=== PATIENT | female | born 2005 | race African-American/Black ===

== ENCOUNTER → 2023-06-21 | Emergency (ER) | payer SELFPAY ==
--- OUTSIDE RECORDS SUMMARY | 2023-06-21 18:50 | XMS REPORT | Continuity of Care Document ---
Author Name Unknown Address [address] [place] [address] [employer] Address [address] [place] [address] Care Team Providers Care Burner Operator Name Role Phone Unavailable Unavailable Unavailable
--- NOTE | 2023-06-21 19:49 | RAD REPORT ---
EXAM DESCRIPTION: RAD - Shoulder Right 2 View - 06/21/2023 7:39 pm CLINICAL HISTORY: PAIN COMPARISON: No comparisons FINDINGS/IMPRESSION: No acute fracture. No malalignment. No significant focal degenerative changes.
--- NOTE | 2023-06-21 19:56 | ER ---
Nurse's Notes [facility] Name: Gustavo Alexandra Age: 18 yrs Sex: Female : 2005 Arrival Date: 06/21/2023 Time: 18:47 Bed 11 Private MD: Diagnosis: Sprain of shoulder joint Presentation: 06/21 19:06 Chief complaint: Patient states: RIGHT SHOULDER PAIN X3 WEEKS. NO TRAUMA OR INJURY. cm10 Coronavirus screen: Vaccine status: Patient reports being unvaccinated. Client denies travel out of the [place] in the last 14 days. Ebola Screen: Patient denies travel to an Ebola-affected area in the 21 days before illness onset. No symptoms or risks identified at this time. Initial Sepsis Screen: Does the patient meet any 2 criteria? No. Patient's initial sepsis screen is negative. Does the patient have a suspected source of infection? No. Patient's initial sepsis screen is negative. Risk Assessment: Do you want to hurt yourself or someone else? Patient reports no desire to harm self or others. Onset of symptoms was June 21, 2023. 19:06 Method Of Arrival: Ambulatory cm10 19:06 Acuity: CEDRIC 4 cm10 Triage Assessment: 19:58 General: Appears in no apparent distress. Behavior is calm, cooperative. Injury tl4 Description: Pt has repetitive pulling and heavy lifting recently. 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 - Social history:: Smoking status: Patient denies any tobacco usage or history of. Screenin:57 [facility] ED Fall Risk Assessment (Adult) History of falling in the last 3 months, tl4 including since admission No falls in past 3 months (0 pts) Confusion or Disorientation No (0 pts) Intoxicated or Sedated No (0 pts) Impaired Gait No (0 pts) Mobility Assist Device Used No (0 pt) Altered Elimination No (0 pt) Score/Fall Risk Level 0 - 2 = Low Risk Oriented to surroundings, Maintained a safe environment, Educated pt \T\ family on fall prevention, incl call for assistance when getting out of bed. Abuse screen: Denies threats or abuse. Denies injuries from another. Nutritional screening: No deficits noted. Tuberculosis screening: No symptoms or risk factors identified. Assessment: 19:56 Reassessment: No changes from previously documented assessment. Patient and/or family tl4 updated on plan of care and expected duration. Pain level reassessed. Patient is alert, oriented x 3, equal unlabored respirations, skin warm/dry/pink. Pain: Complains of pain in right shoulder. Musculoskeletal: Reports pain in right shoulder. Vital Signs: 19:06 BP 142 / 76; Pulse 81; Resp 14 S; Temp 97.6(O); Pulse Ox 100% on R/A; Weight 72.57 kg; cm10 Height 5 ft. 6 in. ; Pain 6/10; 19:06 Body Mass Index 25.82 (72.57 kg, 167.64 cm) cm10 19:06 Pain Scale: Adult cm10 ED Course: 18:52 Patient arrived in ED. ae5 18:56 Alfred Campbell MD is Attending Physician. ec2 19:11 Triage completed. cm10 19:11 Arm band placed on Patient placed in waiting room. cm10 19:41 Shoulder Right (2 View) XRAY In Process Unspecified. CHANDA 19:45 Wisam Wiggins is Primary Nurse. tl4 19:57 Patient has correct armband on for positive identification. Bed in low position. Call tl4 light in reach. Side rails up X 1. Adult w/ patient. Provided Education on: ED process. 19:58 No provider procedures requiring assistance completed. tl4 20:10 Patient did not have IV access during this emergency room visit. cm10 Administered Medications: No medications were administered Medication: 19:57 VIS not applicable for this client. tl4 Outcome: 19:56 Discharge ordered by . ec2 20:10 Discharged to home ambulatory, with friend, [email or web address] 20:10 Condition: good 20:10 Discharge instructions given to patient, Instructed on discharge instructions, follow up and referral plans. medication usage, Demonstrated understanding of instructions, follow-up care, medications, Prescriptions given X 1, 20:10 Patient left the ED. cm10 Signatures: Dispatcher [employer] Adela Haji, KEVIN BROWN cm10 Campbell, Alfred, MD MD ec2 Logdahl, Wisam tl4 Riggs, Alexia ae5
--- NOTE | 2023-06-21 19:56 | EDPHYS ---
Physician Documentation [facility] Name: Gutsavo Alexandra Age: 18 yrs Sex: Female : 2005 Arrival Date: 06/21/2023 Time: 18:47 Bed 11 Private MD: ED Physician Alfred Campbell HPI: 06/21 19:10 This 18 yrs old Black Female presents to ER via Unassigned with complaints of Shoulder ec2 Pain, Shoulder Injury. 19:10 Patient arrives today for evaluation of right shoulder pain. Patient reports that she ec2 has been experiencing several weeks of shoulder pain. States that she has no specific trauma or injury or fall. States that it is painful with range of motion. Denies any previous shoulder pathology. Denies any paresthesias or weakness in the right upper extremity.. 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 - Social history:: Smoking status: Patient denies any tobacco usage or history of. ROS: 19:10 Constitutional: as per hpi ec2 Exam: 19:10 Constitutional: GEN: NAD Head: atraumatic Eyes: EOMI Ears: External ears are ec2 normal. CV: regular rate LUNGS: no respiratory distress ABD: non-distended SKIN: no evidence of rashes MSK: no evidence of trauma proximal humerus/right shoulder, good range of motion with abduction, external range of motion, supination pronation NEURO: moves all extremities equally, right upper extremity with TTP to the Vital Signs: 19:06 BP 142 / 76; Pulse 81; Resp 14 S; Temp 97.6(O); Pulse Ox 100% on R/A; Weight 72.57 kg; cm10 Height 5 ft. 6 in. ; Pain 12/02; 19:06 Body Mass Index 25.82 (72.57 kg, 167.64 cm) cm10 19:06 Pain Scale: Adult cm10 MDM: 19:10 Data reviewed: vital signs. ED course: Patient arrives today for evaluation of right ec2 shoulder pain. Examination remarkable for well-appearing nontoxic individual is otherwise in no acute distress with a reassuring MSK examination. Will obtain radiograph of the right shoulder. Suspect possible muscular strain, low suspicion for bony pathology given reassuring examination.. 19:12 Patient medically screened. ec2 19:54 ED course: Shoulder x-ray independently reviewed and interpreted by me, shows no acute ec2 traumatic process, no evidence of dislocation. Will discharge home, prescribed Robaxin as needed for MSK pain. Return precautions given.. 06/21 19:10 Order name: Shoulder Right (2 View) XRAY; Complete Time: 19:53 ec2 Administered Medications: No medications were administered Disposition Summary: 06/21/23 19:56 Discharge Ordered Notes: Location: Home ec2 Condition: Stable ec2 Diagnosis - Sprain of shoulder joint ec2 Followup: ec2 - With: Private Physician - When: - Reason: Recheck today's complaints Discharge Instructions: - Discharge Summary Sheet ec2 - Shoulder Sprain ec2 Forms: - Medication Reconciliation Form ec2 - Thank You Letter ec2 - Antibiotic Education ec2 - Prescription Opioid Use ec2 - Patient Portal Instructions ec2 - Leadership Thank You Letter ec2 Prescriptions: - methocarbamol 500 mg Oral tablet - take 1 tablet ORAL route 4 times per day; 20 tablet; Refills: 0, Product ec2 Selection Permitted Signatures: Dispatcher [employer] Adela Haji RN RN cm10 Alfred Campbell MD MD ec2
[2023-06-21 22:51] VITALS: BP 142/76; TEMP 97.6; O2SAT 100
== END ==
LOC: ER 18:47
DX: S43.401A Unspecified sprain of right shoulder joint, initial encounter (principal)
CPT/HCPCS: 99283

== ENCOUNTER 2023-11-06 01:45 | Emergency (ER) | payer OTHER ==
--- OUTSIDE RECORDS SUMMARY | 2023-11-06 01:48 | XMS REPORT | Continuity of Care Document ---
Author Name Unknown Address [address] [facility] [address] [place] [address] [facility] Address [address] [facility] [address] [place] [address] Care Team Providers Care Helicopter Officer Name Role Phone PCP, PATIENT DOES NOT HAVE A Primary Care Physic chau Unavailable OSWALDO BOSWELL Attending Clinician Unavailable Oswaldo Boswell MD Attending Clinician OSWALDO BOSWELL Admitting Clinician Unavailable Payers Payer Name Policy Type Policy Number Effective Date Expirati on Date Source [employer] [id number] 2022 00:00:00 Allergies, Adverse Reactions, Alerts Allergy Name Allergy Type Status Severity Reaction(s) Onset Date Inactive Date Treating Clinician Comments Source NO KNOWN ALLERGIE S Drug Class Active [facility] Social History Social Habit Start Date Stop Date Quantity Comments Source Gender identity [facility] Sex Assigned At 2005 00:00:00 2005 00:00:00 [facility] Smoking Status Start Date Stop Date Source Tobacco smoking consumption unknown [facility] Vital Signs Vital Name Observation Time Observation Value Comments S yadiel Systolic blood pressure 2023-01-19 02:21:00 118 mm[Hg] [place] [facility] Diastolic blood pressure 2023-01-19 02:21:00 60 mm[Hg] [place] [facility] Heart rate 2023-01-19 02:21:00 63 /min [facility] acute hospital Respiratory rate 2023-01-19 02:21:00 14 /min [facility] Oxygen saturation in Arterial blood by Pulse oximetry 2023-01-19 02:21:00 100 /min [place] [facility] Body temperature 2023-01-19 00:12:00 37.22 Carey [facility] Body height 2023-01-19 00:12:[address] [facility] Body weight 2023-01-19 00:12:[address] [facility] BMI 2023-01-19 00:12:00 23.40 kg/m2 [facility] Procedures Procedure Date / Time Performed Performing Clinician Source POCT TEST 2023-01-19 01:06:00 Oswaldo Boswell [facility] MAGNESIUM 2023-01-19 00:58:[address] [facility] COMP. METABOLIC PANEL (21565) 2023-01-19 00:58:00 Oswaldo Boswell [facility] URINE DRUG (IMMUNOASSAY) - COMPREHENSIVE DRUG SCREEN 2023-01-19 00:58:00 Oswaldo Boswell [facility] CBC WITH DIFF 2023-01-19 00:58:[address] [facility] URINALYSIS 2023-01-19 00:58:[address] [facility] Encounters Start Date/Time End Date/Time Encounter Type Admission Type Attending Clinicians Care Facility Care Department Encounter ID Source 2023-01-18 19:14:00 2023-01-18 21:27:00 Emergency X OSWALDO BOSWELL [facility] ERT [id number] [facility] 2023-01-18 19:14:00 2023-01-18 21:27:00 Emergency Oswaldo Boswell [facility] [id number] [facility] Results Test Description Test Time Test Comments Results Result Co mments Source [facility] 01:38:33* Test Item Value Reference Range Interpretation Comme nts MAGNESIUM (test code = 5648005197) 1.9 mg/dL 1.7-2.4 Lab Interpretation (test cod e = 39650-2) Normal [facility] WITH [id number] 01:15:10* Test Item Value Reference Range Interpretation Comme nts WBC (test code = 6690-2) 7.63 See_Comment [Automated messa ge] The system which generated this result transmitted reference range: 4.30 - 11.10 10*3/?L. The reference range was not used to interpret this result as normal/abnormal. RBC (test code = 789-8) 4.54 See_Comment [Automated messa ge] The system which generated this result transmitted reference range: 3.93 - 5.25 10*6/?L. The reference range was not used to interpret this result as normal/abnormal. HGB (test code = 718-7) 14.0 g/dL 11.6-15.0 HCT (test code = 4544-3) 40.4 % 35.7-45.2 MCV (test code = 787-2) 89.0 fL 80.6-95.5 MCH (test code = 785-6) 30.8 pg 25.9-32.8 MCHC (test code = 786-4) 34.7 g/dL 31.6-35.1 RDW-SD (test code = 93560-9) 38.1 fL 39.0-49.9 L RDW-CV (test code = 788-0) 11.9 % 12.0-15.5 L PLT (test code = 777-3) 255 See_Comment [Automated messa ge] The system which generated this result transmitted reference range: 166 - 358 10*3/?L. The reference range was not used to interpret this result as normal/abnormal. MPV (test code = 73061-4) 10.5 fL 9.5-12.9 NRBC/100 WBC (test code = 4615727042) 0.0 See_Comment [Automated [employer] ssage] The system which generated this result transmitted reference range: 0.0 - 10.0 /100 WBCs. The reference range was not used to interpret this result as normal/abnormal. NRBC x10^3 (test code = 1881226427) See_Comment [Automated messa ge] The system which generated this result transmitted reference range: 10*3/?L. The reference range was not used to interpret this result as normal/abnormal. GRAN MAT (NEUT) % (test code = 770-8) 47.5 % IMM GRAN % (test code = 5123801394) 0.10 % LYMPH % (test code = 736-9) 43.8 % MONO % (test code = 5905-5) 5.5 % EOS % (test code = 713-8) 2.8 % BASO % (test code = 706-2) 0.3 % GRAN MAT x10^3(ANC) (test code = 7043985700) 3.63 10*3/uL 1.88-7.09 IMM GRAN x10^3 (test code = 4383917740) 0.00-0.06 LYMPH x10^3 (test code = 731-0) 3.34 10*3/uL 1.32-3.29 H MONO x10^3 (test code = 742-7) 0.42 10*3/uL 0.33-0.92 EOS x10^3 (test code = 711-2) 0.21 10*3/uL 0.03-0.39 BASO x10^3 (test code = 704-7) 0.01-0.07 Lab Interpretation (test code = 12820-1) [id number] 01:06:00* Test Item Value Reference Range Interpretation Comme nts POCT PREG (test code = 1605) Negative On board controls acceptable with C Line (test code = 3574) Yes POCT PREG LOT # (test code = 3575) [id number] POCT PREG TEST DATE ( test code = 3576) [id number] Lab Interpretation (test cod e = 40900-3) Normal [facility] Notes Date/Time Note Provider Source 2023-01-18 19:11:19 BuwYCnAhTM8NRMIv/KAL ovyyi1wjMULJsSJyGYg7gY to0FzFhm+8fMNGOxT0uUby2920-27-13Q89:11:19F ormatting of this note might be different from the original.Patient reports she thinks she is having a seizure right now during triage, and states she had one last night and this passed out. Patient was ambulatory to triage and is randomly shaking her body. [id number] department Triage pbhlOT0524-37-44U95:14:32[facility] Triage [id number] 9|[id number] for patient [address] Dd[id number] BPUHZQPTVAFQUFNS3924-67-49Y08:14:321.2.840 .372288.1.72.3.15|1.2.840.637572.1.13.104. 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 Pt is reported to have had generalized shaking that lasted about 3 seconds and another lasting about a minute. No CLAYTON. No tongue bite. No loss of bladder/bowel fx. Partner reports a period of confusion that lasted very briefly. No head trauma or injury. No fever or chills. No rash. Denies any UTI/URI symptoms. No neck pain/stiffness.First observed episode occurred in November of this year. Maternal grandmother has a hx of seizures, otherwise no other family hx of seizuresHistory provided by: Significant other and patientLanguage staff development manager used: No SeizuresSeizure activity on arrival: no Seizure type: Unable to specifyInitial focality: DiffuseEpisode characteristics: abnormal movements Return to baseline: yes Severity: MildDuration: 3 secondsTiming: IntermittentNumber of seizures this episode: 3Progression: ImprovingContext: family hx of seizures Context: not alcohol withdrawal, not cerebral palsy, not change in medication, not sleeping less, not developmental delay, not drug use, not emotional upset, not fever, not flashing visual stimuli, not hydrocephalus, not intracranial lesion, not intracranial shunt, medical compliance, not possible hypoglycemia, not possible medication ingestion, not , not previous head injury and not stress Recent head injury: No recent head injuriesPTA treatment: NoneHistory of seizures: no Past Medical History/Immunizations:AnxietyTetanus received in last 5 years: Unknown Allergies:No Known AllergiesPast Social History:Substance & Sexual Activity No substance use or sexual activity history on file. Past Surgical History:NoneReview of Systems: Review of Systems Constitutional: Negative. HENT: Negative. Eyes: Negative. Respiratory: Negative. Breasts: Negative. Cardiovascular: Negative. Gastrointestinal: Negative. Genitourinary: Negative. Musculoskeletal: Negative. Skin: Negative. Neurological: Positive for seizures. Psychiatric/Behavioral: Negative. All other systems reviewed and are negative.Endocrine: Endocrine negativePhysical Exam: ED Triage Vitals [01/18/231911] Weight 65.8 kg (145 lb) Actual or estimated Actual Height 1.676 m (5' 6") BP (!) 133/96 Pulse 109 Resp 18 Temp 37.2 ?C (99 ?F) Temp src SpO2 100 % Measured on Room air Physical ExamVitals and nursing note reviewed. Constitutional: General: She is not in acute distress. Appearance: Normal appearance. She is well-developed and normal weight. She is not ill-appearing or toxic-appearing. HENT: Head: Normocephalic and atraumatic. Nose: Nose normal. No congestion or rhinorrhea. Mouth/Throat: Mouth: Mucous membranes are moist. Pharynx: Oropharynx is clear. No oropharyngeal exudate or posterior oropharyngeal erythema. Eyes: General: No scleral icterus. Right eye: No discharge. Left eye: No discharge. Extraocular Movements: Extraocular movements intact. Conjunctiva/sclera: Conjunctivae normal. Pupils: Pupils are equal, round, and reactive to light. Neck: Thyroid: No thyromegaly. Cardiovascular: Rate and Rhythm: Normal rate and regular rhythm. Pulses: Normal pulses. Heart sounds: Normal heart sounds. No murmur heard.Pulmonary: Effort: Pulmonary effort is normal. No respiratory distress. Breath sounds: Normal breath sounds. No stridor. No wheezing, rhonchi or rales. Chest: Chest wall: No tenderness. Abdominal: General: Bowel sounds are normal. There is no distension. Palpations: Abdomen is soft. Tenderness: There is no abdominal tenderness. There is no right CVA tenderness, left CVA tenderness, guarding or rebound. Musculoskeletal: General: No swelling, tenderness, deformity or signs of injury. Normal range of motion. Cervical back: Normal range of motion and neck supple. No rigidity or tenderness. Right lower leg: No edema. Left lower leg: No edema. Lymphadenopathy: Cervical: No cervical adenopathy. Skin: General: Skin is warm and dry. Capillary Refill: Capillary refill takes less than 2 seconds. Coloration: Skin is not jaundiced or pale. Findings: No bruising, erythema, lesion or rash. Neurological: General: No focal deficit present. Mental Status: She is alert and oriented to person, place, and time. Cranial Nerves: No cranial nerve deficit. Sensory: No sensory deficit. Motor: No weakness or abnormal muscle tone. Coordination: Coordination normal. Gait: Gait normal. Deep Tendon Reflexes: Reflexes normal. Psychiatric: Behavior: Behavior normal. Thought Content: Thought content normal. Judgment: Judgment normal. Radiology:CT HEAD WO CONTRAST Preliminary Result EXAM: CT HEAD WO CONTRAST HISTORY: 17 years-old Female; Provided indication: Seizure, nontraumatic, Seizure-like activity . TECHNIQUE: Axial CT of the head was performed and reconstructed at 5 mm intervals. Coronal and sagittal reformatted images were generated. COMPARISON: None FINDINGS: The ventricles and cerebral sulci are normal in caliber and configuration. No midline shift or pathological extra-axial fluid collection is present. The basal cisterns are unremarkable. No acute intracranial hemorrhage or significant mass effect is visualized. No parenchymal attenuation abnormality is seen. The mann-white matter differentiation is preserved. The mastoid air cells and paranasal air sinuses are cl3ear. The calvarium and central skull base are unremarkable. IMPRESSION No acute intracranial hemorrhage or mass effect. Preliminary Report Dictated by Resident: Jennifer Mercedes Lab Results:Lab Results CBC WITH DIFF - Abnormal Result Value Ref Range WBC 7.63 4.30 - 11.10 10*3/?L RBC 4.54 3.93 - 5.25 10*6/?L HGB 14.0 11.6 - 15.0 g/dL HCT 40.4 35.7 - 45.2 % MCV 89.0 80.6 - 95.5 fL MCH 30.8 25.9 - 32.8 pg MCHC 34.7 31.6 - 35.1 g/dL RDW-SD 38.1 (*) 39.0 - 49.9 fL RDW-CV 11.9 (*) 12.0 - 15.5 % PLT 255 166 - 358 10*3/?L MPV 10.5 9.5 - 12.9 fL NRBC/100 WBC 0.0 0.0 - 10.0 /100 WBCs NRBC x10^3 <0.01 10*3/?L GRAN MAT (NEUT) % 47.5 % IMM GRAN % 0.10 % LYMPH % 43.8 % MONO % 5.5 % EOS % 2.8 % BASO % 0.3 % GRAN MAT x10^3(ANC) 3.63 1.88 - 7.09 10*3/uL IMM GRAN x10^3 <0.03 0.00 - 0.06 10*3/uL LYMPH x10^3 3.34 (*) 1.32 - 3.29 10*3/uL MONO x10^3 0.42 0.33 - 0.92 10*3/uL EOS x10^3 0.21 0.03 - 0.39 10*3/uL BASO x10^3 <0.03 0.01 - 0.07 10*3/uL URINALYSIS - Abnormal APPEARANCE Clear Clear COLOR Straw (*) Yellow PH 7.0 4.8 - 8.0 SP GRAVITY 1.010 1.003 - 1.030 GLU U QUAL Normal Normal BLOOD Negative Negative KETONES Negative Negative PROTEIN Negative Negative UROBILIN Normal Normal BILIRUBIN Negative Negative NITRITE Negative Negative LEUK GEMA Negative Negative RBC/HPF <1 0 - 3 HPF WBC/HPF 2 0 - 5 HPF BACTERIA Few (*) Negative SQ EPITH 1 HPF URINE DRUG (IMMUNOASSAY) - COMPREHENSIVE DRUG SCREEN - Normal AMPHET Negative Negative HARRISON U Negative Negative BENZO U Negative Negative Cocaine Metabolite Negative Negative METHADONE Negative Negative OPIATES Negative Negative PCP Negative Negative THC Negative Negative POCT TEST - Normal POCT PREG Negative On board controls acceptable with C Line Yes POCT PREG LOT # [id number] POCT PREG TEST DATE MAGNESIUM - Normal MAGNESIUM 1.9 1.7 - 2.4 mg/dL COMP. METABOLIC PANEL (01257) NA 137 135 - 145 mmol/L K 4.2 3.5 - 5.0 mmol/L CL 105 98 - 108 mmol/L CO2 TOTAL 24 23 - 31 mmol/L AGAP 8 2 - 16 BUN 7 7 - 23 mg/dL GLUCOSE 83 70 - 110 mg/dL CREATININE 0.79 0.50 - 1.04 mg/dL TOTAL BILI 0.5 0.1 - 1.1 mg/dL CALCIUM 9.3 8.6 - 10.6 mg/dL T PROTEIN 7.9 6.3 - 8.2 g/dL ALBUMIN 4.4 3.5 - 5.0 g/dL ALK PHOS 71 34 - 122 U/L ALTv 13 5 - 35 U/L AST(SGOT) 21 13 - 40 U/L eGFR 93.8 mL/min/1.73m2 Orders and Treatments:Orders Placed This Encounter Procedures CT HEAD WO CONTRAST CBC WITH DIFF COMP. METABOLIC PANEL (93070) URINALYSIS DRUG PANEL 2 URINE POCT TEST MAGNESIUM No orders of the defined types were placed in this encounter.First Provider Eval:ED Events Date/Time Event User Comments 01/18/231914 Medical Screening Begins OSWALDO BOSWELL MD -- 01/18/231914 First Provider Evaluation OSWALDO BOSWELL MD -- ED COURSEDiagnosis/Impression as of 01/18/232122 Seizure-like activity Procedures: ProceduresMDM:Medical Decision MakingAjose ramon Alexandra is a 17 year old femaleh wo presents to the ED with seizure-like activityProblems Addressed:Seizure-like activity: acute illness or injury Details: ED evaluation, laboratory and imaging study results as documenetd. No acute findingsAmount and/or Complexity of Data ReviewedIndependent Historian: friendLabs: ordered. Decision-making details documented in ED Course.Radiology: ordered. Decision-making details documented in ED Course.RiskDecision regarding hospitalization.Risk Details: No indication for hospitalization at this timeWill refer to PCP/Neurology for further work-upNo seizure or seizure-like activity appreciated in the ED during entire period of observation Flowsheet Documentation: Scoring Tools: No data recorded Disposition/Condition:ED Disposition ED Disposition Disch - Home Condition Stable Comment -- Discharge Medications:Patient's Medications No medications on file Follow-up:Contact information for follow-up Travis Jim MD Specialty: PN-NEUROLOGY [facility] AND [address] [address] Electronically signed by: Oswaldo Boswell MD01/18/232122 [id number] Emergency department HayvDT1861-07-62S64:23:18Physician Emergency department [id number] 9|[id number] for patient careUT11 Marsh [id number] AMAYAWYIVDFVPMGQLLYJS0193-68-77N24:23:181.2.840 .754905.1.72.3.15|1.2.840.441712.1.13.104. [id number] [facility]
[2023-11-06] MEDS ORDERED: KETOROLAC 30 MG/ML INJ ONE (02:21)
[2023-11-06] MEDS ORDERED: DIPHENHYDRAMINE 50 MG/ML VIAL ONE (02:21)
[2023-11-06] MEDS ORDERED: NA CHLORIDE 0.9% 1,000 ML ONE (02:22)
[2023-11-06] MEDS ORDERED: METOCLOPRAMIDE 10 MG/2mL INJ ONE (02:22)
[2023-11-06 02:46] LABS: Specific Gravity 1.015 (1.005-1.030)
[2023-11-06] MEDS ORDERED: MORPHINE 4 MG/ML SYR ONE (03:03)
--- NOTE | 2023-11-06 03:23 | EDPHYS ---
Physician Documentation [facility] Name: Gustavo Alexandra Age: 18 yrs Sex: Female : 2005 Arrival Date: 11/06/2023 Time: 01:45 Bed 11 Private MD: ED Physician Pepe Bowman HPI: 11/05 02:02 This 18 yrs old Black Female presents to ER via Ambulatory with complaints of Migraine. sp4 03:18 18-year-old female presents with recurrent migraine headache. Patient has history of sp4 migraine headaches. Last CT was done 6 months ago and was normal. Patient reports headache and nausea. Light sensitivity to her eyes. 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 Flu vaccine is not up to date. - Infectious Disease History:: Denies. - Social history:: Smoking status: Patient denies any tobacco usage or history of. Patient/guardian denies using alcohol, street drugs. - Family history:: not pertinent. ROS: 03:18 Constitutional: Negative for fever, chills, and weight loss, positive acute headache. sp4 03:18 All other systems are negative, Exam: 03:18 Constitutional: This is a well developed, well nourished patient who is awake, alert, sp4 and in no acute distress. Head/Face: Normocephalic, atraumatic. Eyes: Pupils equal round and reactive to light, extra-ocular motions intact. Lids and lashes normal. Conjunctiva and sclera are not injected. Cornea within normal limits. Periorbital areas with no swelling, redness, or edema. ENT: Nares patent. No nasal discharge, no septal abnormalities noted. Tympanic membranes are normal and external auditory canals are clear. Oropharynx with no redness, swelling, or masses, exudates, or evidence of obstruction, uvula midline. Mucous membranes moist. Neck: Trachea midline, no thyromegaly or masses palpated, and no cervical lymphadenopathy. Supple, full range of motion without nuchal rigidity, or vertebral point tenderness. Chest/axilla: Normal chest wall appearance and motion. Nontender with no deformity. No lesions are appreciated. Cardiovascular: Regular rate and rhythm with a normal S1 and S2. No gallops, murmurs, or rubs. Normal PMI, no JVD. No pulse deficits. Respiratory: Lungs have equal breath sounds bilaterally, clear to auscultation and percussion. No rales, rhonchi or wheezes noted. No increased work of breathing, no retractions or nasal flaring. Abdomen/GI: Soft, with normal bowel sounds. No distension or tympany. No guarding or rebound. No evidence of tenderness throughout. Back: No spinal tenderness. No costovertebral tenderness. Skin: Warm, dry with normal turgor. Normal color with no rashes, no lesions, and no evidence of cellulitis. MS/ Extremity: Pulses equal, no cyanosis. Neurovascular intact. Full, normal range of motion. Neuro: Awake and alert, GCS 15, oriented to person, place, time, and situation. Cranial nerves II-XII grossly intact. Motor strength 5/5 in all extremities. Sensory grossly intact. Psych: Awake, alert, with orientation to person, place and time. Behavior, mood, and affect are within normal limits Vital Signs: 01:56 BP 126 / 77; Pulse 73; Resp 17 S; Temp 98.2(O); Pulse Ox 100% on R/A; Weight 77.11 kg lg3 (R); Height 5 ft. 6 in. (R); 03:35 BP 121 / 74; Pulse 71; Resp 16 S; Temp 98(O); Pulse Ox 100% on R/A; lg3 01:56 Body Mass Index 27.44 (77.11 kg, 167.64 cm) lg3 Keren Coma Score: 03:18 Eye Response: spontaneous(4). Motor Response: obeys commands(6). Verbal Response: sp4 oriented(5). Total: 15. MDM: 02:03 Patient medically screened. sp4 03:18 Differential Diagnosis altered mental status, sepsis, flu, Migraine . Data reviewed: sp4 vital signs, nurses notes, lab test result(s), UPT: negative. ED course: Pain has improved after the medications. Patient is feeling much better. Stable for discharge home. . 11/05 02:03 Order name: Test, Urine; Complete Time: 03:16 sp4 11/05 01:58 Order name: IV Start; Complete Time: 02:30 sb4 Administered Medications: 02:40 Drug: Ketorolac IVP 30 mg IVP once Route: IVP; Site: left antecubital; lg3 03:35 Follow up: Response: No adverse reaction; Marked relief of symptoms lg3 02:40 Drug: metoCLOPramide IVP 10 mg IVP once; over 1 to 2 minutes Route: IVP; Site: left lg3 antecubital; 03:35 Follow up: Response: No adverse reaction; Marked relief of symptoms lg3 02:40 Drug: diphenhydrAMINE IVP 25 mg IVP once Route: IVP; Site: left antecubital; lg3 03:34 Follow up: Response: No adverse reaction; Marked relief of symptoms lg3 02:40 Drug: NS 0.9% IV 1000 ml IV at 1 bolus Per protocol; 1000 mL bolus Route: IV; Rate: 1 lg3 bolus; Site: left antecubital; 03:34 Follow up: Response: No adverse reaction; IV Status: Completed infusion; IV Intake: lg3 1000ml 03:05 Drug: morphine IVP or IV 4 mg IVP once over 4 mins Route: IVP; Infused Over: 4 mins; lg3 Site: left antecubital; 03:34 Follow up: Response: No adverse reaction; Marked relief of symptoms lg3 Disposition Summary: 11/06/23 03:23 Discharge Ordered Notes: Location: Home sp4 Problem: new sp4 Symptoms: have improved sp4 Condition: Stable sp4 Diagnosis - Migraine without aura, not intractable sp4 Followup: sp4 - With: Danny Kelley DO - When: 7 - 10 days - Reason: Recheck today's complaints Discharge Instructions: - Discharge Summary Sheet sp4 - Migraine Headache, Sajf-kb-Oicy sp4 Prescriptions: - Fioricet 50-300-40 mg Oral capsule - take 1 capsule ORAL route every 6 hours PRN headache; 30 capsule; Refills: 0, sp4 Product Selection Permitted - ondansetron 8 mg Oral Tablet,disintegrating - take 1 tablet ORAL route every 8 hours PRN nausea; 30 tablet; Refills: 0, sp4 Product Selection Permitted Signatures: Dispatcher [employer] Claritza Stovall RN RN lg3 Aimee Stephens PA-C PA-C sb4 Pepe Bowman MD MD sp4
--- NOTE | 2023-11-06 03:23 | ER ---
Nurse's Notes [facility] Name: Gustavo Alexandra Age: 18 yrs Sex: Female : 2005 Arrival Date: 11/06/2023 Time: 01:45 Bed 11 Private MD: Diagnosis: Migraine without aura, not intractable Presentation: 11/05 01:56 Chief complaint: Patient states: migraine X8 hours. 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 lg3 Coronavirus screen: Client denies travel out of the [place] in the last 14 days. At this time, the client does not indicate any symptoms associated with coronavirus-19. Ebola Screen: No symptoms or risks identified at this time. Initial Sepsis Screen: Does the patient meet any 2 criteria? No. Patient's initial sepsis screen is negative. Does the patient have a suspected source of infection? No. Patient's initial sepsis screen is negative. Risk Assessment: Do you want to hurt yourself or someone else? Patient reports no desire to harm self or others. Onset of symptoms was November 05, 2023. 01:56 Method Of Arrival: Ambulatory lg3 01:56 Acuity: CEDRIC 3 lg3 Triage Assessment: 01:57 General: Appears in no apparent distress. comfortable, Behavior is calm, cooperative. lg3 Pain: Complains of pain in head Pain does not radiate. Pain currently is 9 out of 10 on a pain scale. EENT: No deficits noted. No signs and/or symptoms were reported regarding the EENT system. Neuro: No deficits noted. Elliott Agitation-Sedation Scale (RASS): 0 - Alert and Calm Level of Consciousness is awake, alert, obeys commands, Oriented to person, place, time, situation, Reports headache weakness. Cardiovascular: No deficits noted. Denies chest pain, shortness of breath, Capillary refill < 3 seconds Clubbing of nail beds is absent JVD is absent Patient's skin is warm and dry. Respiratory: No deficits noted. Airway is patent Respiratory effort is even, unlabored, Respiratory pattern is regular, symmetrical. GI: No deficits noted. No signs and/or symptoms were reported involving the gastrointestinal system. : No deficits noted. No signs and/or symptoms were reported regarding the genitourinary system. Derm: No deficits noted. No signs and/or symptoms reported regarding the dermatologic system. Skin is intact, is healthy with good turgor, Skin is dry, Skin is normal, Skin temperature is warm. Musculoskeletal: No deficits noted. No signs and/or symptoms reported regarding the musculoskeletal system. Circulation, motion, and sensation intact. Range of motion: intact in all extremities. 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 Flu vaccine is not up to date. - Infectious Disease History:: Denies. - Social history:: Smoking status: Patient denies any tobacco usage or history of. Patient/guardian denies using alcohol, street drugs. - Family history:: not pertinent. Screenin:59 [facility] ED Fall Risk Assessment (Adult) History of falling in the last 3 months, lg3 including since admission No falls in past 3 months (0 pts) Confusion or Disorientation No (0 pts) Intoxicated or Sedated No (0 pts) Impaired Gait No (0 pts) Mobility Assist Device Used No (0 pt) Altered Elimination No (0 pt) Score/Fall Risk Level 0 - 2 = Low Risk Oriented to surroundings, Maintained a safe environment, Educated pt \T\ family on fall prevention, incl call for assistance when getting out of bed, Assessed \T\ reinforced patient's understanding of fall precautions. Abuse screen: Denies threats or abuse. Denies injuries from another. Nutritional screening: No deficits noted. Tuberculosis screening: No symptoms or risk factors identified. Assessment: 01:59 General: see triage assessment. lg3 03:34 Reassessment: Patient appears in no apparent distress at this time. Patient and/or lg3 family updated on plan of care and expected duration. Pain level reassessed. Patient is alert, oriented x 3, equal unlabored respirations, skin warm/dry/pink. Patient states feeling better. Patient states symptoms have improved. Vital Signs: 01:56 BP 126 / 77; Pulse 73; Resp 17 S; Temp 98.2(O); Pulse Ox 100% on R/A; Weight 77.11 kg lg3 (R); Height 5 ft. 6 in. (R); 03:35 BP 121 / 74; Pulse 71; Resp 16 S; Temp 98(O); Pulse Ox 100% on R/A; lg3 01:56 Body Mass Index 27.44 (77.11 kg, 167.64 cm) lg3 Keren Coma Score: 03:18 Eye Response: spontaneous(4). Motor Response: obeys commands(6). Verbal Response: sp4 oriented(5). Total: 15. ED Course: 01:48 Patient arrived in ED. ra3 01:57 Triage completed. lg3 01:57 Arm band placed on right wrist. lg3 01:59 Patient has correct armband on for positive identification. lg3 02:02 Pepe Bowman MD is Attending Physician. sp4 02:30 Claritza Hurt RN is Primary Nurse. lg3 02:30 Inserted saline lock: 20 gauge in left antecubital area, using aseptic technique. lg3 03:22 Danny Kelley DO is Referral Physician. sp4 03:34 No provider procedures requiring assistance completed. IV discontinued, intact, lg3 bleeding controlled, No redness/swelling at site. Pressure dressing applied. Administered Medications: 02:40 Drug: Ketorolac IVP 30 mg IVP once Route: IVP; Site: left antecubital; lg3 03:35 Follow up: Response: No adverse reaction; Marked relief of symptoms lg3 02:40 Drug: metoCLOPramide IVP 10 mg IVP once; over 1 to 2 minutes Route: IVP; Site: left lg3 antecubital; 03:35 Follow up: Response: No adverse reaction; Marked relief of symptoms lg3 02:40 Drug: diphenhydrAMINE IVP 25 mg IVP once Route: IVP; Site: left antecubital; lg3 03:34 Follow up: Response: No adverse reaction; Marked relief of symptoms lg3 02:40 Drug: NS 0.9% IV 1000 ml IV at 1 bolus Per protocol; 1000 mL bolus Route: IV; Rate: 1 lg3 bolus; Site: left antecubital; 03:34 Follow up: Response: No adverse reaction; IV Status: Completed infusion; IV Intake: lg3 1000ml 03:05 Drug: morphine IVP or IV 4 mg IVP once over 4 mins Route: IVP; Infused Over: 4 mins; lg3 Site: left antecubital; 03:34 Follow up: Response: No adverse reaction; Marked relief of symptoms lg3 Medication: 03:34 VIS not applicable for this client. lg3 Intake: 03:34 IV: 1000ml; Total: 1000ml. lg3 Outcome: 03:23 Discharge ordered by . [email or web address] 03:34 Discharged to home ambulatory, with significant other, lg3 03:34 Condition: stable 03:34 Discharge instructions given to patient, Instructed on discharge instructions, follow up and referral plans. medication usage, Demonstrated understanding of instructions, follow-up care, medications, 03:35 Patient left the ED. lg3 Signatures: Claritza Hurt RN RN lg3 Pepe Bowman MD MD sp4 Michelle Cross ra3
[2023-11-06 03:48] VITALS: BP 121/74; TEMP 98; O2SAT 100
== END 2023-11-06 03:35 | disposition home or self-care (01) ==
LOC: ER 01:45
DX: G43.009 Migraine without aura, not intractable, without status migrainosus (principal); Z28.310 Unvaccinated for COVID-19
CPT/HCPCS: 96361; 81025; 96375; 96374; 99284; J2765; J1200; J7030

== ENCOUNTER 2023-12-21 18:04 | Emergency (ER) | payer OTHER ==
--- OUTSIDE RECORDS SUMMARY | 2023-12-21 18:08 | XMS REPORT | Continuity of Care Document ---
Author Name Unknown Address [address] [place] [address] [facility] Address 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 Name Role Phone PCP, PATIENT DOES NOT HAVE A Primary Care Physic chau Unavailable OSWALDO BOSWELL Attending Clinician Unavailable Oswaldo Boswell MD Attending Clinician OSWALDO BOSWELL Admitting Clinician Unavailable Payers Payer Name Policy Type Policy Number Effective Date Expirati on Date Source [employer] [id number] 2022 00:00:00 Allergies, Adverse Reactions, Alerts Allergy Name Allergy Type Status Severity Reaction(s) Onset Date Inactive Date Treating Clinician Comments Source NO KNOWN ALLERGIE S Drug Class Active [facility] Social History Social Habit Start Date Stop Date Quantity Comments Source Gender identity [facility] Sexual orientation [facility] Sex Assigned At 2005 00:00:00 2005 00:00:00 [facility] Smoking Status Start Date Stop Date Source Tobacco smoking consumption unknown [facility] Vital Signs Vital Name Observation Time Observation Value Comments S yadiel Systolic blood pressure 2023-01-19 02:21:00 118 mm[Hg] [facility] Diastolic blood pressure 2023-01-19 02:21:00 60 mm[Hg] [facility] Heart rate 2023-01-19 02:21:00 63 /min [facility] Respiratory rate 2023-01-19 02:21:00 14 /min [facility] Oxygen saturation in Arterial blood by Pulse oximetry 2023-01-19 02:21:00 100 /min [facility] Body temperature 2023-01-19 00:12:00 37.22 Carey [facility] Body height 2023-01-19 00:12:00 167.6 cm [facility] Body weight 2023-01-19 00:12:00 65.772 kg [facility] BMI 2023-01-19 00:12:00 23.40 kg/m2 [facility] Procedures Procedure Date / Time Performed Performing Clinician Source POCT TEST 2023-01-19 01:06:00 Oswaldo Boswell [facility] MAGNESIUM 2023-01-19 00:58:00 Oswaldo Boswell [facility] COMP. METABOLIC PANEL (41148) 2023-01-19 00:58:00 Oswaldo Boswell [facility] URINE DRUG (IMMUNOASSAY) - COMPREHENSIVE DRUG SCREEN 2023-01-19 00:58:00 Oswaldo Boswell [facility] CBC WITH DIFF 2023-01-19 00:58:00 Oswaldo Boswell [facility] URINALYSIS 2023-01-19 00:58:00 Oswaldo Boswell [facility] Encounters Start Date/Time End Date/Time Encounter Type Admission Type Attending Clinicians Care Facility Care Department Encounter ID Source 2023-01-18 19:14:00 2023-01-18 21:27:00 Emergency X OSWALDO BOSWELL [facility] ERT [id number] [facility] 2023-01-18 19:14:00 2023-01-18 21:27:00 Emergency Oswaldo Boswell [facility] [id number] [facility] Results Test Description Test Time Test Comments Results Result Co mments Source [facility]23-[facility] 01:38:33* Test Item Value Reference Range Interpretation Comme nts MAGNESIUM (test code = 6036991533) 1.9 mg/dL 1.7-2.4 Lab Interpretation (test cod e = 31561-9) Normal [facility] WITH [id number] 01:15:10* Test Item Value Reference Range Interpretation [...] 34.7 g/dL 31.6-35.1 RDW-SD (test code = 81244-3) 38.1 fL 39.0-49.9 L RDW-CV (test code = 788-0) 11.9 % 12.0-15.5 L PLT (test code = 777-3) 255 See_Comment [Automated messa ge] The system which generated this result transmitted reference range: 166 - 358 10*3/?L. The reference range was not used to interpret this result as normal/abnormal. MPV (test code = 52381-8) 10.5 fL 9.5-12.9 NRBC/100 WBC (test code = 3925283135) 0.0 See_Comment [Automated EduSourced ssage] The system which generated this result transmitted reference range: 0.0 - 10.0 /100 WBCs. The reference range was not used to interpret this result as normal/abnormal. NRBC x10^3 (test code = 2967324062) See_Comment [Automated messa ge] The system which generated this result transmitted reference range: 10*3/?L. The reference range was not used to interpret this result as normal/abnormal. GRAN MAT (NEUT) % (test code = 770-8) 47.5 % IMM GRAN % (test code = 9566052757) 0.10 % LYMPH % (test code = 736-9) 43.8 % MONO % (test code = 5905-5) 5.5 % EOS % (test code = 713-8) 2.8 % BASO % (test code = 706-2) 0.3 % GRAN MAT x10^3(ANC) (test code = 1547656777) 3.63 10*3/uL 1.88-7.09 IMM GRAN x10^3 (test code = 2846569305) 0.00-0.06 LYMPH x10^3 (test code = 731-0) 3.34 10*3/uL 1.32-3.29 H MONO x10^3 (test code = 742-7) 0.42 10*3/uL 0.33-0.92 EOS x10^3 (test code = 711-2) 0.21 10*3/uL 0.03-0.39 BASO x10^3 (test code = 704-7) 0.01-0.07 Lab Interpretation (test code = 09018-7) Abnormal [facility] [id number] 01:06:00* Test Item Value Reference Range Interpretation Comme nts POCT PREG (test code = 1605) Negative On board controls acceptable with C Line (test code = 3574) Yes POCT PREG LOT # (test code = 3575) [id number] POCT PREG TEST DATE ( test code = 3576) [id number] Lab Interpretation (test cod e = 96961-4) Normal [facility] Notes Date/Time Note Provider Source 2023-01-18 19:11:19 [id number]:11:19F ormatting of this note might be different from the original.Patient reports she thinks she is having a seizure right now during triage, and states she had one last night and this passed out. Patient was ambulatory to triage and is randomly shaking her body. 01570-8Rjplyiukx department Triage [id number]:14:32[facility] Triage [id number] for patient [address] Gf[id number] [id number]:14:321.2.840 .315145.1.72.3.15|[id number]. 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 METABOLIC PANEL (56534) NA 137 135 - 145 mmol/L K [...] CONTRAST CBC WITH DIFF COMP. METABOLIC PANEL (44671) URINALYSIS DRUG PANEL 2 URINE POCT TEST MAGNESIUM No orders of the defined types were placed in this encounter.First Provider Eval:ED Events Date/Time Event User Comments 01/18/231914 Medical Screening Begins OSWALDO BSOWELL MD -- 01/18/231914 First Provider Evaluation OSWALDO [...] for follow-up Travis Jim MD Specialty: PN-NEUROLOGY [facility] AND [address] [address] Electronically signed by: Oswaldo Boswell MD01/18/232122 [id number] Emergency department [id number]:23:18Physician Emergency department [id number] for patient careUT56 Strickland [id number] HSKQXLIBNOZOOQWZ9227-94-31K93:23:181.2.840 .[id number]|[id number]. [id number] [facility]
[2023-12-21] MEDS ORDERED: LORazepam 2 MG/ML VIAL ONE (20:22)
[2023-12-21] MEDS ORDERED: NA CHLORIDE 0.9% 1,000 ML ONE (20:23)
[2023-12-21 20:32] LABS: Absolute Eosinophils 0.2 K/uL (0-0.5); Absolute Lymphocytes (CBC) 2.8 K/uL (0.7-4.9); Absolute Monocytes 0.4 K/uL (0.1-1.3); Absolute Neutrophil 3.7 K/uL (1.8-8.0); Basophils % 0.3 % (0-1.3); Eosinophils % 3.4 % (0-4.4); Hematocrit 38.5 % (36.0-45.0); Hemoglobin 12.9 g/dL (12.0-15.0); Lymphocytes % 38.7 % (15.3-44.8); MCH 30.5 pg (27.0-35.0); MCHC 33.5 g/dL (32.0-36.0); MCV 91.1 fL (80-100); MPV 8.1 fL (7.6-11.3); Monocytes % 5.2 % (3.3-12.3); Neutrophils % 52.4 % (41.7-73.7); Nucleated Red Blood Cells % 0.1 % (0-0); Platelets 286 thou/uL (152-406); RBC Red Blood Cell Count 4.23 M/uL (3.86-4.86); Red Cell Distribution Width 12.9 % (12.1-15.2)
--- NOTE | 2023-12-21 20:49 | RAD REPORT ---
EXAM DESCRIPTION: CT - Head Brain Wo Cont - 12/21/2023 8:36 pm CLINICAL HISTORY: Headache COMPARISON: none TECHNIQUE: Computed axial tomography of the head was obtained. IV contrast was not requested. All CT scans are performed using dose optimization technique as appropriate and may include automated exposure control or mA/KV adjustment according to patient size. FINDINGS: An intracranial bleed is not seen The ventricles are normal in caliber No significant hypodense areas within the brain visualized No extra-axial fluid collection is noted. Fluid within the sinuses/ mastoids is not seen IMPRESSION: No acute intracranial abnormality is seen If patient's symptoms persist MRI of the brain would be recommended
[2023-12-21 20:55] LABS: ALT/SGPT 18 U/L (13-56); AST/SGOT 11 U/L (15-37); Albumin 3.8 g/dL (3.4-5.0); Albumin/Globulin Ratio 1.1 (1.1-1.8); Alkaline Phosphatase 74 U/L (45-117); Anion Gap 6.8 mEq/L (5.0-15.0); BUN Blood Urea Nitrogen 7 mg/dL (7-18); Bicarbonate 26 mEq/L (21-32); Bilirubin Total 0.3 mg/dL (0.2-1.0); Globulin 3.4 g/dL (2.3-3.5); Glomerular Filtration Rate 129 ml/min (=/>90); Glucose Level 89 mg/dL (74-106); Magnesium 2.1 mg/dL (1.6-2.4); Potassium 3.8 mEq/L (3.5-5.1); Protein, Total 7.2 g/dL (6.4-8.2); Sodium Level 137 mEq/L (136-145)
[2023-12-21 20:56] LABS: Bilirubin Direct < 0.2 mg/dL (0-0.2); Bilirubin Indirect, Calculated 0.1 mg/dL (0.2-0.8); Troponin High Sensitivity < 3.0 pg/mL (<58.9)
--- NOTE | 2023-12-21 21:29 | RAD REPORT ---
EXAM DESCRIPTION: Jaswinder Single View12/21/2023 9:22 pm CLINICAL HISTORY: Chest pain COMPARISON: none FINDINGS: The lungs appear clear of acute infiltrate. The heart is normal size IMPRESSION: No acute abnormalities displayed
[2023-12-21 21:34] LABS: Specific Gravity 1.007 (1.005-1.030)
[2023-12-21 21:35] LABS: Barbiturates POSITIVE (NEGATIVE); Benzodiazepines NEGATIVE (NEGATIVE); Cocaine NEGATIVE (NEGATIVE); METHAMPHETAM NEGATIVE (NEGATIVE); Methadone NEGATIVE (NEGATIVE); Opiates NEGATIVE (NEGATIVE); Phencyclidine NEGATIVE (NEGATIVE); THC Cannibis NEGATIVE (NEGATIVE)
[2023-12-21 21:40] LABS: Specific Gravity 1.007 (1.005-1.030); Sqamous Epithelial <5 /HPF (None Seen); Urine Bacteria <20 /HPF (<20); Urine Bilirubin NEGATIVE (Negative); Urine Blood Negative (Negative); Urine Clarity Extremely Turbid (Clear); Urine Color Colorless (Yellow); Urine Culture Reflex Order NOT NEEDED; Urine Glucose NEGATIVE (Negative); Urine Ketones NEGATIVE (Negative); Urine Micro Reflex YN NO BILL MICROSCOPIC; Urine Mucus Slight /HPF (None Seen); Urine Nitrite NEGATIVE (Negative); Urine Protein NEGATIVE (Negative); Urine RBC <5 /HPF (None Seen); Urine Urobilinogen Normal (Normal); Urine WBC <5 /HPF (<5)
--- NOTE | 2023-12-21 22:46 | EDPHYS ---
Physician Documentation [facility] Name: Gustavo Alexandra Age: 18 yrs Sex: Female : 2005 Arrival Date: 12/21/2023 Time: 18:04 Bed 18 Private MD: ED Physician Jabier Jeronimo HPI: 12/20 19:30 This 18 yrs old Black Female presents to ER via Ambulatory with complaints of Tremor - cp x3days, Blurred Vision - Fatigue. 19:30 Patient presents to ED with c/o having an "aura", intermittent trembling and shaking, cp fatigue, blurry vision. Patient reports she has had a seizure in the past and feels like she is having seizure like activity but denies any LOC. Not currently taking any seizure medication and has not been seen by neurology to have an EEG. 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 - Infectious Disease History:: Denies. - Social history:: Smoking status: unknown. ROS: 19:35 Constitutional: Positive for fatigue, Negative for fever, cp 19:35 Eyes: Positive for blurry vision, Negative for vision loss, cp 19:35 ENT: Negative for drainage from ear(s), ear pain, sore throat, difficulty swallowing, difficulty handling secretions, 19:35 Cardiovascular: Negative for chest pain, 19:35 Respiratory: Negative for cough, shortness of breath, wheezing, 19:35 Abdomen/GI: Negative for abdominal pain, 19:35 Neuro: Positive for dizziness, headache, tingling, tremor, weakness, 19:35 All other systems are negative, Exam: 19:40 Constitutional: The patient appears in no acute distress, alert, awake, cp non-diaphoretic, non-toxic, well developed, well nourished, 19:40 Head/Face: Normocephalic, atraumatic. cp 19:40 Eyes: Periorbital structures: appear normal, Pupils: equal, round, and reactive to light and accomodation, Extraocular movements: intact throughout, Conjunctiva: normal, no exudate, no injection, Sclera: no appreciated abnormality, Lids and lashes: appear normal, bilaterally, 19:40 ENT: External ear(s): are unremarkable, Nose: is normal, Mouth: Lips: moist, Oral mucosa: pink and intact, moist, Posterior pharynx: Airway: no evidence of obstruction, patent, 19:40 Neck: ROM/movement: is normal, is supple, without pain, no range of motions limitations, 19:40 Chest/axilla: Inspection: normal, Palpation: is normal, no crepitus, no tenderness, 19:40 Cardiovascular: Rate: normal, Rhythm: regular, 19:40 Respiratory: the patient does not display signs of respiratory distress, Respirations: normal, no use of accessory muscles, no retractions, labored breathing, is not present, Breath sounds: are clear throughout, no decreased breath sounds, no stridor, no wheezing, 19:40 Abdomen/GI: Inspection: abdomen appears normal, Palpation: abdomen is soft and non-tender, in all quadrants, 19:40 Neuro: Orientation: to person, place \\T\\ time. Mentation: is normal, Cerebellar function: is grossly normal, Motor: moves all fours, strength is normal, Sensation: is normal, 20:12 ECG was reviewed by the Attending Physician. Vital Signs: 18:25 BP 118 / 65; Pulse 87; Resp 18 S; Temp 97.8(O); Pulse Ox 100% on R/A; Weight 84.82 kg aa5 (R); Height 5 ft. 5 in. (R); 20:47 BP 111 / 71; Pulse 60; Resp 14; Pulse Ox 100% on R/A; nj1 21:50 BP 108 / 63; Pulse 58; Resp 17 S; Pulse Ox 100% on R/A; ha1 22:20 BP 97 / 61; Pulse 78; Resp 17 S; Pulse Ox 100% on R/A; ha1 23:03 BP 98 / 65; Pulse 87; Resp 17 S; Pulse Ox 100% on R/A; ha1 18:25 Body Mass Index 31.12 (84.82 kg, 165.1 cm) aa5 MDM: 18:29 Patient medically screened. cp 22:45 Data reviewed: vital signs, nurses notes, lab test result(s), EKG, radiologic studies, cp plain films, and as a result, I will discharge patient. 22:45 I considered the following discharge prescriptions or medication management in the emergency department Medications were administered in the Emergency Department. See MAR. Counseling: I had a detailed discussion with the patient and/or guardian regarding the historical points, exam findings, and any diagnostic results supporting the discharge/admit diagnosis, lab results, radiology results, the need for outpatient follow up, a neurologist, to return to the emergency department if symptoms worsen or persist or if there are any questions or concerns that arise at home. Response to treatment: the patient's symptoms have mildly improved after treatment. ED course: VSS. No seizure activity observed while monitoring patient in ED. 12/20 19:25 Order name: Basic Metabolic Panel; Complete Time: 22:35 12/20 22:35 Interpretation: Normal except: CL 108. 12/20 19:25 Order name: CBC with Diff; Complete Time: 22:35 12/20 19:25 Order name: LFT's; Complete Time: 22:35 12/20 22:35 Interpretation: Normal except: AST 11; IBILI, CALC 0.1. 12/20 19:25 Order name: Magnesium; Complete Time: 22:35 12/20 19:25 Order name: Troponin HS; Complete Time: 22:35 12/20 19:25 Order name: Urine W/Microscopic (UAM); Complete Time: 22:35 12/20 19:25 Order name: Test, Urine; Complete Time: 22:35 12/20 20:12 Order name: UDS; Complete Time: 22:35 12/20 19:25 Order name: XRAY Chest (1 view); Complete Time: 22:35 12/20 22:37 Interpretation: Report review. 12/20 20:12 Order name: CT Head Brain wo Cont; Complete Time: 22:35 12/20 19:25 Order name: EKG; Complete Time: 19:25 12/20 19:25 Order name: Cardiac monitoring; Complete Time: 20:16 12/20 19:25 Order name: EKG - Nurse/Tech; Complete Time: 20:07 12/20 19:25 Order name: IV Saline Lock; Complete Time: 20:24 12/20 19:25 Order name: Labs collected and sent; Complete Time: 20:24 12/20 19:25 Order name: O2 Per Protocol; Complete Time: 20:07 cp 12/20 19:25 Order name: O2 Sat Monitoring; Complete Time: 20:07 cp EC:12 Rate is 61 beats/min. Rhythm is regular. VT interval is normal. QRS interval is normal. cp QT interval is normal. T waves are Inverted in lead aVR. Interpreted by me. Reviewed by me. Administered Medications: 20:30 Drug: NS 0.9% IV 1000 ml IV at 1 bolus Per protocol; 1000 mL bolus Route: IV; Rate: 1 nj1 bolus; Site: left antecubital; 23:06 Follow up: Response: No adverse reaction; Marked relief of symptoms; IV Status: ha1 Completed infusion; IV Intake: 1000ml 20:30 Drug: Ativan IVP 1 mg IVP once Route: IVP; Site: left antecubital; nj1 21:00 Follow up: Response: No adverse reaction; Marked relief of symptoms ha1 Disposition: 12/21 19:01 Co-signature as Attending Physician, Jabier Jeronimo MD I reviewed the patient's care rt provided by the Advanced Practice Provider and agree with the diagnosis and treatment plan. Disposition Summary: 12/21/23 22:46 Discharge Ordered Notes: Location: Home cp Problem: new cp Symptoms: have improved cp Condition: Stable cp Diagnosis - Headache cp - Other visual disturbances cp - Other malaise and fatigue cp Followup: cp - With: Ty Ramachandran MD - When: 2 - 3 days - Reason: Recheck today's complaints Discharge Instructions: - Discharge Summary Sheet cp - Blurred Vision, Adult cp - General Headache Without Cause cp - Fatigue cp Forms: - Medication Reconciliation Form cp - Antibiotic Education cp - Prescription Opioid Use cp - Patient Portal Instructions cp - Leadership Thank You Letter cp - Work release form ha1 Signatures: Dispatcher [employer] EDMariama Land RN RN aa5 Ac Aly PA PA cp Jabier Jeronimo MD MD rt Teresa Carney RN RN nj1 Caron Tee RN ha1 Corrections: (The following items were deleted from the chart) 12/20 19: 19:25 BASIC METABOLIC PANEL+C.LAB.BRZ ordered. EDMS EDMS : 19:25 CBC+H.LAB.BRZ ordered. EDMS EDMS : 19:25 HEPATIC FUNCTION+C.LAB.BRZ ordered. EDMS EDMS 19:25 MAGNESIUM+C.LAB.BRZ ordered. EDMS EDMS 19:25 Troponin High Sensitivity+C.LAB.BRZ ordered. EDMS EDMS 19:25 Urinalysis W/Microscopic+U.LAB.BRZ ordered. EDMS EDMS 19:25 Test, Urine+UC.LAB.BRZ ordered. EDMS EDMS 20: 20:12 URINE DRUG SCREEN+UC.LAB.BRZ ordered. EDMS EDMS
--- NOTE | 2023-12-21 22:46 | ER ---
Nurse's Notes [facility] Name: Gustavo Alexandra Age: 18 yrs Sex: Female : 2005 Arrival Date: 12/21/2023 Time: 18:04 Bed 18 Private MD: Diagnosis: Headache;Other visual disturbances;Other malaise and fatigue Presentation: 12/20 18:25 Chief complaint: Patient states: "I've been having auras, I get cramps on one side of aa5 my body and sometimes on the other side, I am fatigued, and the tips of my fingers have been getting blue". Pt also reports uncontrollable shaking all over body. 18:25 Acuity: CEDRIC 3 aa5 18:25 Coronavirus screen: At this time, the client does not indicate any symptoms associated aa5 with coronavirus-19. Ebola Screen: Patient denies travel to an Ebola-affected area in the 21 days before illness onset. Initial Sepsis Screen: Does the patient meet any 2 criteria? No. Patient's initial sepsis screen is negative. Does the patient have a suspected source of infection? No. Patient's initial sepsis screen is negative. Risk Assessment: Do you want to hurt yourself or someone else? Patient reports no desire to harm self or others. Onset of symptoms was November 2023. 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 - Infectious Disease History:: Denies. - Social history:: Smoking status: unknown. Screenin:44 [facility] ED Fall Risk Assessment (Adult) History of falling in the last 3 months, nj1 including since admission No falls in past 3 months (0 pts) Confusion or Disorientation No (0 pts) Intoxicated or Sedated No (0 pts) Impaired Gait No (0 pts) Mobility Assist Device Used No (0 pt) Altered Elimination No (0 pt) Score/Fall Risk Level 0 - 2 = Low Risk Oriented to surroundings, Maintained a safe environment, Hourly rounding (assess needs \\T\\ fall precautionary measures) done. Abuse screen: Denies threats or abuse. Denies injuries from another. Nutritional screening: No deficits noted. Tuberculosis screening: No symptoms or risk factors identified. Assessment: 20:30 General: Appears in no apparent distress. comfortable, Behavior is calm, cooperative, nj1 appropriate for age. Pain: Denies pain. Neuro: Level of Consciousness is awake, alert, obeys commands, Oriented to person, place, time, situation, Reports Fatigue, malaise. Cardiovascular: Patient's skin is warm and dry. Respiratory: Airway is patent Respiratory effort is even, unlabored. : Denies vaginal bleeding. Derm: Skin is pale. 21:00 Reassessment: Patient and/or family updated on plan of care and expected duration. Pain ha1 level reassessed. Patient is alert, oriented x 3, equal unlabored respirations, skin warm/dry/pink. Patient states feeling better. Patient states symptoms have improved. 22:06 Reassessment: Patient and/or family updated on plan of care and expected duration. Pain ha1 level reassessed. Patient is alert, oriented x 3, equal unlabored respirations, skin warm/dry/pink. 23:03 Reassessment: Patient and/or family updated on plan of care and expected duration. Pain ha1 level reassessed. Patient is alert, oriented x 3, equal unlabored respirations, skin warm/dry/pink. Patient denies pain at this time. Patient states feeling better. Patient states symptoms have improved. Vital Signs: 18:25 BP 118 / 65; Pulse 87; Resp 18 S; Temp 97.8(O); Pulse Ox 100% on R/A; Weight 84.82 kg aa5 (R); Height 5 ft. 5 in. (R); 20:47 BP 111 / 71; Pulse 60; Resp 14; Pulse Ox 100% on R/A; nj1 21:50 BP 108 / 63; Pulse 58; Resp 17 S; Pulse Ox 100% on R/A; ha1 22:20 BP 97 / 61; Pulse 78; Resp 17 S; Pulse Ox 100% on R/A; ha1 23:03 BP 98 / 65; Pulse 87; Resp 17 S; Pulse Ox 100% on R/A; ha1 18:25 Body Mass Index 31.12 (84.82 kg, 165.1 cm) aa5 ED Course: 18:08 Patient arrived in ED. ra3 18:25 Arm band placed on. aa5 18:28 Ac Aly PA is PHCP. cp 18:29 Jabier Jeronimo MD is Attending Physician. cp 18:29 Triage completed. aa5 20:07 Teresa Carney, KEVIN is Primary Nurse. nj1 20:24 Inserted saline lock: 22 gauge in left antecubital area, using aseptic technique. Blood rv1 collected. 20:24 Basic Metabolic Panel Sent. rv1 20:24 CBC with Diff Sent. rv1 20:24 LFT's Sent. rv1 20:24 Magnesium Sent. rv1 20:24 Troponin HS Sent. rv1 20:30 Patient has correct armband on for positive identification. nj1 20:30 Bed in low position. Call light in reach. Provided Education on: call light, fall nj1 precautions. 20:38 CT Head Brain wo Cont In Process Unspecified. EDMS 21:15 Report given to Caron BROWN. nj1 21:24 XRAY Chest (1 view) In Process Unspecified. EDMS 22:44 Ty Ramachandran MD is Referral Physician. cp 23:05 No provider procedures requiring assistance completed. IV discontinued, intact, ha1 bleeding controlled, No redness/swelling at site. Pressure dressing applied. Administered Medications: 20:30 Drug: NS 0.9% IV 1000 ml IV at 1 bolus Per protocol; 1000 mL bolus Route: IV; Rate: 1 nj1 bolus; Site: left antecubital; 23:06 Follow up: Response: No adverse reaction; Marked relief of symptoms; IV Status: ha1 Completed infusion; IV Intake: 1000ml 20:30 Drug: Ativan IVP 1 mg IVP once Route: IVP; Site: left antecubital; nj1 21:00 Follow up: Response: No adverse reaction; Marked relief of symptoms ha1 Medication: 23:06 VIS not applicable for this client. ha1 Intake: 23:06 IV: 1000ml; Total: 1000ml. ha1 Outcome: 22:46 Discharge ordered by . cp 23:05 Discharged to home ambulatory, with family, ha1 23:05 Condition: stable 23:05 Discharge instructions given to patient, family, Instructed on discharge instructions, follow up and referral plans. Demonstrated understanding of instructions, follow-up care, 23:07 Patient left the ED. ha1 Signatures: Dispatcher [employer] EDMS Mariama Avila, RN RN aa5 Ac Aly PA PA cp Caron Tee, EKVIN RN ha1 Salima Hanna rv1 Teresa Carney RN RN nj1 Michelle Cross ra3 Corrections: (The following items were deleted from the chart) 18:29 18:25 BP 118 / 65; Pulse 87bpm; Resp 18bpm; Spontaneous; Pulse Ox 100% RA; Temp 97.8F aa5 Oral; aa5 21:19 21:17 Patient has correct armband on for positive identification. nj1 nj1
[2023-12-21 23:42] VITALS: TEMP 97.8; O2SAT 100
[2023-12-22 00:08] VITALS: BP 98/65
--- NOTE | 2023-12-24 14:21 | EKG ---
Test Date: 2023-12-21 Test Time: 20:05:16 Food Production Associate: AF MEASUREMENT RESULTS: Intervals: Rate: 61 TX: 148 QRSD: 92 QT: 420 QTc: 422 [place]: P: 41 TX: 148 QRS: 2 T: 46 INTERPRETIVE STATEMENTS: Normal sinus rhythm with sinus arrhythmia Normal ECG No previous ECG available for comparison Electronically Signed On 12-24-23 14:16:09 CDT by Escobar Dunlap
== END 2023-12-21 23:07 | disposition home or self-care (01) ==
LOC: ER 18:04
DX: R51.9 Headache, unspecified (principal); H53.8 Other visual disturbances; R53.81 Other malaise; R53.83 Other fatigue
CPT/HCPCS: 96361; 85025; 81001; 80048; 36415; 83735; 81025; 80076; 84484; 80307; 70450; 71045; 96374; 99284; J7030; 93005

== ENCOUNTER 2024-02-24 15:15 | Emergency (ER) | payer OTHER, SELFPAY ==
--- OUTSIDE RECORDS SUMMARY | 2024-02-24 15:20 | XMS REPORT | Continuity of Care Document ---
Author Name Unknown Address [address] [place] [address] [facility] thconnect Address [address] [place] [address] Care Team Providers Care Abstract Searcher Name Role Phone PCP, PATIENT DOES NOT HAVE A Primary Care Physic chau Unavailable Dilip Boswell MD Attending Clinician DILIP BOSWELL Attending Clinician Unavailable DILIP BOSWELL Admitting Clinician Unavailable DILIP BOSWELL Admitting Clinician Unavailable Payers Payer Name Policy Type Policy Number Effective Date Expirati on Date Source MANAGED MEDICAID GENERIC NON-CONTRACT [id number] 2023 00:00:00 2023 00:00:00 [employer] [id number] 2022 00:00:00 Allergies, Adverse Reactions, Alerts Allergy Name Allergy Type Status Severity Reaction(s) Onset Date Inactive Date Treating Clinician Comments Source NO KNOWN ALLERGIE S Drug Class Active [facility] Social History Social Habit Start Date Stop Date Quantity Comments Source Gender identity [facility] Sexual orientation [facility] Sex assigned at 2005 00:00:00 2005 00:00:00 [facility] Smoking Status Start Date Stop Date Source Tobacco smoking consumption unknown [facility] Medications Ordered Medication Name Filled Medication Name Start Date Stop Date Current Medication? Ordering Clinician Indication Dosage Frequency Signature (SIG) Comments Components Source cefTRIAXone (ROCEPHIN) 1,000 mg in NaCl 0.9% (NS) 100 mL MINI-BAG 12-22 07:30: 00 12-22 07:38 :00 No 1000mg 1,000 mg, IV Piggyback, ONCE, 1 dose, On Sun12/23/23 at 0230, Administer over 30 Minutes, 100 mL, Reason for Anti-Infec tive: Documented Infection, Documented Infection Site: Urine, Duration of Therapy: Other (see Comments) [facility] iopamidol (ISOVUE 370-500 mL) injection 80 mL 12-22 07:00: 00 12-22 07:00 :00 No [id number] 80mL 80 mL, Intravenou s, ONCE, 1 dose, On Sun12/23/23 at 0200, Routine [facility] cefdinir 300 mg capsule 12-22 00:00: 00 Yes [id number] 300mg Take 1 capsule by mouth every 12 (twelve) hours. [facility] ketorolac 10 mg tablet 12-22 00:00: 00 Yes [id number] 10mg Take 1 tablet by mouth every 6 (six) hours as needed for Pain (scale 7-10). [facility] Vital Signs Vital Name Observation Time Observation Value Comments S cecece Heart rate 2023-12-23 07:47:00 58 /min [facility] Body temperature 2023-12-23 07:47:00 36.61 [facility] Oxygen saturation in Arterial blood by Pulse oximetry 2023-12-23 07:47:00 100 /min [facility] Systolic blood pressure 2023-12-23 07:30:00 102 mm[Hg] [facility] Diastolic blood pressure 2023-12-23 07:30:00 58 mm[Hg] [facility] Respiratory rate 2023-12-23 07:30:00 16 /min [facility] Body height 2023-12-23 03:34:00 165.1 cm [facility] Body weight 2023-12-23 03:34:00 84.823 kg [facility] BMI 2023-12-23 03:34:00 31.12 kg/m2 [facility] Systolic blood pressure 2023-01-19 02:21:00 118 mm[Hg] [facility] Diastolic blood pressure 2023-01-19 02:21:00 60 mm[Hg] [facility] Heart rate 2023-01-19 02:21:00 63 /min [facility] Respiratory rate 2023-01-19 02:21:00 14 /min [facility] Oxygen saturation in Arterial blood by Pulse oximetry 2023-01-19 02:21:00 100 /min [facility] Body temperature 2023-01-19 00:12:00 37.22 [facility] Body height 2023-01-19 00:12:00 167.6 cm [facility] Body weight 2023-01-19 00:12:00 65.772 kg [facility] BMI 2023-01-19 00:12:00 23.40 kg/m2 [facility] Procedures Procedure Date / Time Performed Performing Clinician Source CT ABDOMEN PELVIS W CONTRAST 2023-12-23 06:07:04 Dilip Boswell [facility] POCT TEST 2023-12-23 04:18:00 Dilip Boswell [facility] LIPASE 2023-12-23 04:16:00 Dilip Boswell [facility] COMP. METABOLIC PANEL (27028) 2023-12-23 04:16:00 Dilip Boswell [facility] CBC WITH DIFF 2023-12-23 04:16:[address] [facility] URINALYSIS 2023-12-23 04:16:00 Dilip Boswell [facility] POCT TEST 2023-01-19 01:06:00 Dilip Boswell [facility] MAGNESIUM 2023-01-19 00:58:00 Dilip Boswell [facility] COMP. METABOLIC PANEL (26637) 2023-01-19 00:58:00 Dilip Boswell [facility] URINE DRUG (IMMUNOASSAY) - COMPREHENSIVE DRUG SCREEN 2023-01-19 00:58:00 Dilip Boswlel [facility] CBC WITH DIFF 2023-01-19 00:58:[address] [facility] URINALYSIS 2023-01-19 00:58:00 Dilip Boswell [facility] Encounters Start Date/Time End Date/Time Encounter Type Admission Type Attending Clinicians Care Facility Care Department Encounter ID Source 2023-12-22 22:37:00 2023-12-23 02:50:00 Emergency Dilip Boswell [facility] [id number] [facility] 2023-12-22 22:37:00 2023-12-23 02:50:00 Emergency X DILIP BOSWELL [facility] ERT [id number] [facility] 2023-01-18 19:14:00 2023-01-18 21:27:00 Emergency X DILIP BOSWELL [facility] ERT [id number] [facility] 2023-01-18 19:14:00 2023-01-18 21:27:00 Emergency Dilip Boswell [facility] [id number] [facility] Results Test Description Test Time Test Comments Results Result Comments Source CT ABDOMEN PELVIS W CONTRAST 2023-11-26 0 06:57:07 ORDERING PHYSICIAN: DILIP BOSWELL ABDOMEN AND PELVIS CT WITH CONTRAST. DATE: ?12/23/2023 1:55 AM CLINICAL INDICATIONS: ?Abdominal pain, acute, nonlocalized TECHNIQUE: ?Axial computed tomographic images of the abdomen and pelviswere obtained after administration of 100 mL of Omnipaque 350intravenously. CT scan was performed according to ALARA (As Low asReasonably Achievable). COMPARISON: ?None. Abdomen findings: The lung bases are clear. The cardiac apex isunremarkable. The liver, spleen, pancreas, gallbladder, adrenal glands and kidneys havean unremarkable contrast enhanced appearance. The stomach, small bowel and colon demonstrate no evidence for obstructionor inflammation. A normal appendix is present in right lower quadrant. No adenopathy or free fluid are identified in the abdomen. No acute osseousabnormality is demonstrated. Pelvis findings: The small bowel and colon are normal caliber. The urinarybladder demonstrates no abnormality. The uterus and ovaries have anunremarkable appearance. No adenopathy or free fluid are identified in thepelvis. No acute osseous [facility] identified. [facility] Test Item Value Reference Range Interpretation Comme nts LIPASE (test code = 3620115511) 63 U/L 0-220 Lab Interpretation (test cod e = 79275-2) Normal [facility] with [id number] 04:44:02* Test Item Value Reference Range Interpretation Comme nts WBC (test code = 6690-2) 8.99 4.30-11.10 RBC (test code = 789-8) 4.08 3.93-5.25 HGB (test code = 718-7) 12.5 g/dL 11.6-15.0 HCT (test code = 4544-3) 38.0 % 35.7-45.2 MCV (test code = 787-2) 93.1 fL 80.6-95.5 MCH (test code = 785-6) 30.6 pg 25.9-32.8 MCHC (test code = 786-4) 32.9 g/dL 31.6-35.1 RDW-SD (test code = 73539-5) 40.4 fL 39.0-49.9 RDW-CV (test code = 788-0) 11.9 % 12.0-15.5 L PLT (test code = 777-3) 252 166-358 MPV (test code = 89309-7) 10.0 fL 9.5-12.9 NRBC/100 WBC (test code = 6682128656) 0.0 0.0-10.0 NRBC x10^3 (test code = 8693601451) See_Comment [Automated Capevoa ge] The system which generated this result transmitted reference range: 10*3/?L. The reference range was not used to interpret this result as normal/abnormal. GRAN MAT (NEUT) % (test code = 770-8) 65.2 % IMM GRAN % (test code = 2272341385) 0.20 % LYMPH % (test code = 736-9) 25.8 % MONO % (test code = 5905-5) 6.6 % EOS % (test code = 713-8) 2.0 % BASO % (test code = 706-2) 0.2 % GRAN MAT x10^3(ANC) (test code = 6507829536) 5.86 10*3/uL 1.88-7.09 IMM GRAN x10^3 (test code = 5150132625) 0.00-0.06 LYMPH x10^3 (test code = 731-0) 2.32 10*3/uL 1.32-3.29 MONO x10^3 (test code = 742-7) 0.59 10*3/uL 0.33-0.92 EOS x10^3 (test code = 711-2) 0.18 10*3/uL 0.03-0.39 BASO x10^3 (test code = 704-7) 0.01-0.07 Lab Interpretation (test code = 12858-2) [id number] 04:18:00* Test Item Value Reference Range Interpretation Comme nts POCT PREG (test code = 1605) Negative On board controls acceptable with C Line (test code = 3574) Yes POCT PREG LOT # (test code = 3575) [id number] POCT PREG TEST DATE ( test code = 3576) 03/29/2025 Lab Interpretation (test cod e = 68878-0) [facility] (94702)2023-01-19 01:38:33* Test Item Value Reference Range Interpretation Comme nts NA (test code = 1016300800) 137 mmol/L 135-145 K (test code = 8642145369) 4.2 mmol/L 3.5-5.0 CL (test code = 4045574095) 105 mmol/L 98-108 CO2 TOTAL (test code = 6802778075) 24 mmol/L 23-31 AGAP (test code = 2182651125) 8 2-16 BUN (test code = 0208047913) 7 mg/dL 7-23 GLUCOSE (test code = 9156735976) 83 mg/dL 70-110 CREATININE (test code = 5734524366) 0.79 mg/dL 0.50-1.04 TOTAL BILI (test code = 1616291761) 0.5 mg/dL 0.1-1.1 CALCIUM (test code = 6132706596) 9.3 mg/dL 8.6-10.6 T PROTEIN (test code = 1199299961) 7.9 g/dL 6.3-8.2 ALBUMIN (test code = 8525688558) 4.4 g/dL 3.5-5.0 ALK PHOS (test code = 2533341153) 71 U/L 34-122 ALTv (test code = 1742-6) 13 U/L 5-35 AST(SGOT) (test code = 8137437863) 21 U/L 13-40 eGFR (test code = 7536870660) 93.8 mL/min/1.73m2 [place] (test code = [place]) Association of Glomerular Filtration Rate (GFR) and Staging of Kidney Disease* + + +- +| GFR (mL/min/1.73 m2) ?| With Kidney Damage ?| ?Without Kidney Damage+ ------+ ----+ ------+| ?>90 ?| ?Stage one ?| ? Normal ?+ -+ + -+| ?60-89 ?| ?Stage two ?| ? Decreased GFR ? + + +- +| ?30-59 ?| ?Stage three ?| ? Stage three ? + + +- +| ?15-29 ?| ?Stage four ? | ? Stage four ?+ -+ + -+| ?<15 (or dialysis) ? ?| ?Stage five ? | ? Stage five ?+ -+ + -+ *Each stage assumes the associated GFR level has been in effect for at least three months. ?Stages 1 to 5, with or without kidney disease, indicate chronic kidney disease. Notes: Determination of stages one and two (with eGFR >59mL/min/1.73 m2) requires estimation of kidney damage for at least three months as defined by structural or functional abnormalities of the kidney, manifested by either:Pathological abnormalities or Markers of kidney damage (including abnormalities in the composition of the blood or urine or abnormalities in imaging tests). [facility] 01:38:33* Test Item Value Reference Range Interpretation Comme nts MAGNESIUM (test code = 0294905488) 1.9 mg/dL 1.7-2.4 Lab Interpretation (test cod e = 37100-8) Normal [facility] WITH [id number] 01:15:10* Test Item Value Reference Range Interpretation Comme nts WBC (test code = 6690-2) 7.63 See_Comment [Automated [employer]vo[employer] ge] The system which generated this result transmitted reference range: 4.30 - 11.10 10*3/?L. The reference range was not used to interpret this result as normal/abnormal. RBC (test code = 789-8) 4.54 See_Comment [Automated [employer]vo[employer] ge] The system which generated this result [...] 34.7 g/dL 31.6-35.1 RDW-SD (test code = 43770-2) 38.1 fL 39.0-49.9 L RDW-CV (test code = 788-0) 11.9 % 12.0-15.5 L PLT (test code = 777-3) 255 See_Comment [Automated [employer]vo[employer] ge] The system which generated this result transmitted reference range: 166 - 358 10*3/?L. The reference range was not used to interpret this result as normal/abnormal. MPV (test code = 55839-4) 10.5 fL 9.5-12.9 NRBC/100 WBC (test code = 8391259369) 0.0 See_Comment [Automated me ssage] The system which generated this result transmitted reference range: 0.0 - 10.0 /100 WBCs. The reference range was not used to interpret this result as normal/abnormal. NRBC x10^3 (test code = 7871088959) See_Comment [Automated messa ge] The system which generated this result transmitted reference range: 10*3/?L. The reference range was not used to interpret this result as normal/abnormal. GRAN MAT (NEUT) % (test code = 770-8) 47.5 % IMM GRAN % (test code = 8903422548) 0.10 % LYMPH % (test code = 736-9) 43.8 % MONO % (test code = 5905-5) 5.5 % EOS % (test code = 713-8) 2.8 % BASO % (test code = 706-2) 0.3 % GRAN MAT x10^3(ANC) (test code = 0142812056) 3.63 10*3/uL 1.88-7.09 IMM GRAN x10^3 (test code = 2206876668) 0.00-0.06 LYMPH x10^3 (test code = 731-0) 3.34 10*3/uL 1.32-3.29 H MONO x10^3 (test code = 742-7) 0.42 10*3/uL 0.33-0.92 EOS x10^3 (test code = 711-2) 0.21 10*3/uL 0.03-0.39 BASO x10^3 (test code = 704-7) 0.01-0.07 Lab Interpretation (test code = 29738-8) [facility]normal [facility] [id number] 01:06:00* Test Item Value Reference Range Interpretation Comme nts POCT PREG (test code = 1605) Negative On board controls acceptable with C Line (test code = 3574) Yes POCT PREG LOT # (test code = 3575) [id number] POCT PREG TEST DATE ( test code = 3575) [id number] Lab Interpretation (test cod e = 84895-9) Normal [facility] Notes Date/Time Note Provider Source 2023-12-23 02:49:21 Pt given printed and verbal discharge instructions regarding RLQ abd pain/cystitis, encouraged hydration, Prescriptions provided Discussed toradol and to take with food to avoid GI distress, alternate with Tylenol to help with pain and/or fever Discussed antibiotic therapy and to take until all completed unless adverse reaction occurs - if occurs, discontinue medication and follow up with pcp/seek medical attention Pt verbalized understanding of instructions,pt encouraged to follow up with pcp Advised to seek medical attention for new/prolonged/worsening of symptoms, No adverse reaction to meds given in ER noted upon discharge PIV d'cd, dressing to site, catheter in tact. Awake, alert oriented, resp reg unlabored, skin w/d, pt leaving in no apparent distress, Belle Aguilar RN [facility] 2023-12-23 00:30:00 Pt resting in bed, NAD, call light within reach. Pending results. Karla Moreno RN [facility] 2023-12-22 22:32:23 Pt states "Im having pain in my right lower abdomen. The pain has been since last night when I got out the ER in [place]" IBU 400mg taken about 0 Eli Gomes RN [facility] 2023-01-18 19:11:19 Formatting of this n ote might be different from the original. Patient reports she thinks she is having a seizure right now during triage, and states she had one last night and this passed out. Patient was ambulatory to triage and is randomly shaking her body. [facility] 2023-01-18 19:06:00 Formatting of this n ote is different from the original. [facility] Emergency Department Note Patient Name: Aaliyah Alexandra Date of : 2005 17 year old female Treatment Room: [place] [address] Primary Care Physician: No primary care provider on file. 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 Denies any UTI/URI symptoms. No neck pain/stiffness. First observed episode occurred in November of this year. 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 Past Surgical History: None Review of Systems: Review of Systems Constitutional: Negative. HENT: Negative. Eyes: Negative. Respiratory: Negative. Breasts: Negative. Cardiovascular: Negative. Gastrointestinal: Negative. Genitourinary: Negative. Musculoskeletal: Negative. Skin: Negative. Neurological: Positive for seizures. Psychiatric/Behavioral: Negative. All other systems reviewed and are negative. Endocrine: Endocrine negative Physical Exam: ED Triage Vitals [01/18/231911] Weight 65.8 kg (145 lb) Actual or estimated Actual Height 1.676 m (5' 6") BP (!) 133/96 Pulse 109 Resp 18 Temp 37.2 ?C (99 ?F) Temp src SpO2 100 % Measured on Room air Physical Exam Vitals and nursing note reviewed. Constitutional: General: She [...] Heart sounds: Normal heart sounds. No murmur heard. Pulmonary: Effort: Pulmonary effort is normal. No respiratory [...] Content: Thought content normal. Judgment: Judgment normal. Radiology: CT HEAD WO CONTRAST Preliminary Result EXAM: CT [...] Report Dictated by Resident: Jennifer Mercedes Lab Results: Lab Results CBC WITH DIFF - Abnormal Result [...] 1.7 - 2.4 mg/dL COMP. METABOLIC PANEL (42921) NA 137 135 - 145 mmol/L K [...] 40 U/L eGFR 93.8 mL/min/1.73m2 Orders and Treatments: Orders Placed This Encounter Procedures CT HEAD WO CONTRAST CBC WITH DIFF COMP. METABOLIC PANEL (88531) URINALYSIS DRUG PANEL 2 URINE POCT TEST MAGNESIUM No orders of the defined types were placed in this encounter. First Provider Eval: ED Events Date/Time Event User Comments 01/18/231914 Medical Screening Begins DILIP BOSWELL MD -- 01/18/231914 First Provider Evaluation DILIP BOSWELL MD -- ED COURSE Diagnosis/Impression as of 01/18/232122 Seizure-like activity Procedures: Procedures MDM: Medical Decision Making A'horace Alexandra is a 17 year old femaleh wo presents to the ED with seizure-like activity Problems Addressed: Seizure-like activity: acute illness or injury Details: ED evaluation, laboratory and imaging study results as documenetd. No acute findings Amount and/or Complexity of Data Reviewed Independent Historian: nydia Labs: ordered. Decision-making details documented in ED Course. Radiology: ordered. Decision-making details documented in ED Course. Risk Decision regarding hospitalization. Risk Details: No indication for hospitalization at this time Will refer to PCP/Neurology for further work-up No seizure or seizure-like activity appreciated in the ED during entire period of observation Flowsheet Documentation: Scoring Tools: No data recorded Disposition/Condition: ED Disposition ED Disposition Disch - Home Condition Stable Comment -- Discharge Medications: Patient's Medications No medications on file Follow-up: Contact information for follow-up Travis Jim MD Specialty: PN-NEUROLOGY [facility] [address] [place] [id number] Electronically signed by: Dilip Boswell MD 01/18/232122 T [facility]
--- NOTE | 2024-02-24 16:17 | EDPHYS ---
Physician Documentation [facility] Name: Gustavo Alexandra Age: 18 yrs Sex: Female : 2005 Arrival Date: 02/24/2024 Time: 15:15 Bed IW4 Private MD: ED Physician Eugenio Laguna HPI: 02/23 16:18 This 18 yrs old Black Female presents to ER via Ambulatory with complaints of Leg Pain, sb4 Dog Bite. 16:18 The patient presents with an injury, pain, a puncture wound, dog bite. The complaints sb4 affect the right serna. Context: The problem was sustained at work, resulted from dog bite, the patient can fully bear weight, the patient is able to ambulate, Problem is a result from a previous injury: No. Patient states that she was bit by a dog at work 4 days ago. She states that she has been cleaning with alcohol and keeping it wrapped but it seems to be getting more red and painful. Additionally, she states that she tripped and fell today and now the pain is worse. 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 Last tetanus immunization: unknown. - Infectious Disease History:: Denies. - Social history:: Smoking status: Patient denies any tobacco usage or history of. ROS: 16:18 Constitutional: Negative for fever, chills, and weight loss, sb4 16:18 Skin: Positive for Per HPI, 16:18 All other systems are negative, Exam: 16:18 Constitutional: This is a well developed, well nourished patient who is awake, alert, sb4 and in no acute distress. Head/Face: Normocephalic, atraumatic. Eyes: Extra-ocular motions intact. Periorbital areas with no swelling, redness, or edema. ENT: Mucous membranes moist. 16:18 Skin: injury, puncture(s), that are superficial, of the right serna, 2 healing superficial puncture wounds right serna with mild surrounding erythema, Vital Signs: 16:06 BP 115 / 71; Pulse 75; Resp 17; Temp 97.7; Pulse Ox 100% ; Weight 84.82 kg; Height 5 ap3 ft. 5 in. ; Pain 0/10; 16:06 Body Mass Index 31.12 (84.82 kg, 165.1 cm) ap3 16:06 Pain Scale: Adult ap3 MDM: 15:57 Patient medically screened. sb4 16:18 Data reviewed: vital signs, nurses notes, and as a result, I will discharge patient. sb4 Counseling: I had a detailed discussion with the patient and/or guardian regarding the historical points, exam findings, and any diagnostic results supporting the discharge/admit diagnosis, to return to the emergency department if symptoms worsen or persist or if there are any questions or concerns that arise at home. Administered Medications: No medications were administered Disposition Summary: 02/24/24 16:16 Discharge Ordered Notes: Location: Home sb4 Problem: new sb4 Symptoms: are unchanged sb4 Condition: Stable sb4 Diagnosis - Bitten by dog, initial encounter sb4 - Puncture wound without foreign body, right lower leg, initial encounter sb4 Followup: sb4 - With: Emergency Department - When: As needed - Reason: Fever > 102 F, Worsening of condition Discharge Instructions: - Discharge Summary Sheet sb4 - Animal Bite, Adult, [id number] sb4 - Puncture Wound, [id number] sb4 Forms: - Antibiotic Education sb4 - Patient Portal Instructions sb4 - Leadership Thank You Letter sb4 Prescriptions: - Augmentin 875-125 mg Oral Tablet - take 1 tablet ORAL route every 12 hours for 10 days; 20 tablet; Refills: 0, sb4 Product Selection Permitted Signatures: Belle Wheeler RN RN ap3 Aimee Stephens PA-C PA-C sb4
--- NOTE | 2024-02-24 16:17 | ER ---
Nurse's Notes [facility] Name: Gustavo Alexandra Age: 18 yrs Sex: Female : 2005 Arrival Date: 02/24/2024 Time: 15:15 Bed IW4 Private MD: Diagnosis: Bitten by dog, initial encounter;Puncture wound without foreign body, right lower leg, initial encounter Presentation: 02/23 16:06 Chief complaint: Patient states: she was cleaning a leg wound from a dog bite she ap3 received Sunday, when she fell on the leg. Coronavirus screen: At this time, the client does not indicate any symptoms associated with coronavirus-19. Ebola Screen: No symptoms or risks identified at this time. Initial Sepsis Screen: Does the patient meet any 2 criteria? No. Patient's initial sepsis screen is negative. Does the patient have a suspected source of infection? No. Patient's initial sepsis screen is negative. Risk Assessment: Do you want to hurt yourself or someone else? Patient reports no desire to harm self or others. Onset of symptoms was February 20, 2024. 16:06 Method Of Arrival: Ambulatory ap3 16:06 Acuity: CEDRIC 4 ap3 Triage Assessment: 16:08 Bite description: bite sustained to right serna by a dog, animal information: ap3 vaccination(s) is unknown, was sustained 4 days. 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 General: Appears in no apparent distress. Behavior is calm, cooperative, appropriate for age. Pain: Complains of pain in right serna. Neuro: Level of Consciousness is awake, alert, obeys commands, Oriented to person, place, time, situation, Appropriate for age. Cardiovascular: Patient's skin is warm and dry. Respiratory: Airway is patent Respiratory effort is even, unlabored, Respiratory pattern is regular, symmetrical. Derm: Wound noted right serna. 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 Last tetanus immunization: unknown. - Infectious Disease History:: Denies. - Social history:: Smoking status: Patient denies any tobacco usage or history of. Screenin:09 [facility] ED Fall Risk Assessment (Adult) History of falling in the last 3 months, ap3 including since admission No falls in past 3 months (0 pts) Confusion or Disorientation No (0 pts) Intoxicated or Sedated No (0 pts) Impaired Gait No (0 pts) Mobility Assist Device Used No (0 pt) Altered Elimination No (0 pt) Score/Fall Risk Level 0 - 2 = Low Risk Oriented to surroundings, Maintained a safe environment, Educated pt \T\ family on fall prevention, incl call for assistance when getting out of bed, Assessed \T\ reinforced patient's understanding of fall precautions, Hourly rounding (assess needs \T\ fall precautionary measures) done, Used ambulatory aids as needed (educated on \T\ assisted with), Used gait belt as appropriate. Abuse screen: Denies threats or abuse. Nutritional screening: No deficits noted. Tuberculosis screening: No symptoms or risk factors identified. Assessment: 16:21 Derm: Skin Skin is. ap3 Vital Signs: 16:06 BP 115 / 71; Pulse 75; Resp 17; Temp 97.7; Pulse Ox 100% ; Weight 84.82 kg; Height 5 ap3 ft. 5 in. ; Pain 0/10; 16:06 Body Mass Index 31.12 (84.82 kg, 165.1 cm) ap3 16:06 Pain Scale: Adult ap3 ED Course: 15:20 Patient arrived in ED. im 15:47 Aimee Stephens PA-C is PHCP. sb4 15:47 Eugenio Laguna MD is Attending Physician. sb4 16:07 Triage completed. ap3 16:09 Arm band placed on right wrist. ap3 16:20 No provider procedures requiring assistance completed. Patient did not have IV access ap3 during this emergency room visit. 16:21 Patient has correct armband on for positive identification. Adult w/ patient. Provided ap3 Education on: discharge instructions. Administered Medications: No medications were administered Medication: 16:21 VIS not applicable for this client. ap3 Outcome: 16:16 Discharge ordered by . sb4 16:21 Discharged to home ambulatory, with family, ap3 16:21 Condition: good 16:21 Discharge instructions given to patient, family, Instructed on discharge instructions, follow up and referral plans. medication usage, Demonstrated understanding of instructions, 16:21 Patient left the ED. ap3 Signatures: Belle Wheeler, KEVIN RN ap3 Aimee Stephens, [place] PADianna sb4 Jeanine Mcmullen
[2024-02-24 16:26] VITALS: BP 115/71; TEMP 97.7; O2SAT 100
== END 2024-02-24 16:21 | disposition home or self-care (01) ==
LOC: ER 15:15
DX: S81.831A Puncture wound without foreign body, right lower leg, initial encounter (principal); W54.0XXA Bitten by dog, initial encounter
CPT/HCPCS: 99282

== ENCOUNTER 2025-04-22 17:02 | Emergency (ER) | payer OTHER, SELFPAY ==
[2025-04-22] MEDS ORDERED: IBUPROFEN 400 MG TAB ONE (18:02)
--- NOTE | 2025-04-22 18:39 | RAD REPORT ---
EXAMINATION: Facial Bones W/ Mpr CLINICAL INDICATION: Female, 20 years old. TRAUMA TECHNIQUE: Axial images were obtained through the facial bones and orbits without intravenous contras t. Sagittal and coronal reconstructions were created from the data. One or more of the following dose reduction techniques were used: Automated exposure control, adjustment of the mA and/or kV accor ding to patient size, and/or iterative reconstruction. Unless otherwise specified, incidental findings do not require dedicated imaging follow-up. [id number]. COMPARISON: No prior exams FINDINGS: SOFT TISSUE: No significant abnormalities. BONES: No evidence of fracture, dislocation, or aggressive osseous lesions. No lesion of the visuali zed skull base or calvarium. ORBITS: The globes are intact. No intraorbital hemorrhage or mass. SINUSES: The paranasal sinuses and tympanomastoid cavities are predominantly clear. BRAIN: No acute abnormalities in the visualized intracranial structures. IMPRESSION: No acute or significant abnormalities.
--- NOTE | 2025-04-22 19:06 | EDPHYS ---
Physician Documentation [facility] Name: Gustavo Alexandra Age: 20 yrs Sex: Female : 2005 Arrival Date: 04/22/2025 Time: 17:02 Bed 16 Private MD: ED Physician Grupo Morocho HPI: 04/22 17:15 This 20 yrs old Black Female presents to ER via Ambulatory with complaints of Jaw cp Injury. 17:15 Trauma demographics: County: The injury occurred in [place] Location of Injury: The cp injury occurred at work, Date: April 22, 2025. 17:15 Mechanism of injury: direct blow. Associated injuries: The patient sustained right side cp of jaw. Onset: The symptoms/episode began/occurred today. 17:15 No LOC. 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 - Infectious Disease History:: Denies. - Social history:: Smoking status: Patient denies any tobacco usage or history of. ROS: 17:20 Eyes: Negative for injury, pain, redness, and discharge, cp 17:20 Constitutional: Negative for body aches, chills, fever, poor PO intake, 17:20 ENT: Positive for pain, swelling right lower jaw, 17:20 Cardiovascular: Negative for chest pain, edema, palpitations, 17:20 Respiratory: Negative for cough, shortness of breath, wheezing, 17:20 Abdomen/GI: Negative for vomiting, diarrhea, constipation, 17:20 Neuro: Negative for altered mental status, headache, loss of consciousness, numbness, weakness, 17:20 All other systems are negative, cp Exam: 17:25 Constitutional: The patient appears in no acute distress, alert, awake, well developed, cp well nourished, 17:25 Head/face: Noted is swelling, that is mild, of the anterior right lower jaw and chin, cp tenderness, that is moderate, Sinus tenderness, is not appreciated, 17:25 Eyes: Periorbital structures: appear normal, Pupils: equal, round, and reactive to light and accomodation, Extraocular movements: intact throughout, Conjunctiva: normal, no exudate, no injection, Sclera: no appreciated abnormality, Lids and lashes: appear normal, bilaterally, 17:25 ENT: External ear(s): are unremarkable, Nose: is normal, Mouth: Lips: moist, Oral mucosa: pink and intact, moist, Posterior pharynx: Airway: no evidence of obstruction, patent, erythema, is not appreciated, exudate, is not appreciated, Dental exam: pain, is not appreciated, no acute dental injuries noted, 17:25 Neck: C-spine: vertebral tenderness, is not appreciated, crepitus, is not appreciated, ROM/movement: pain, is not appreciated, limited range of motion, is not appreciated, 17:25 Chest/axilla: Inspection: normal, 17:25 Cardiovascular: Rate: normal, Rhythm: regular, 17:25 Respiratory: the patient does not display signs of respiratory distress, Respirations: normal, no use of accessory muscles, no retractions, labored breathing, is not present, Breath sounds: are clear throughout, no decreased breath sounds, no stridor, no wheezing, 17:25 Abdomen/GI: Exam negative for discomfort, distension, guarding, Inspection: abdomen appears normal, 17:25 Back: pain, is absent, ROM is normal, 17:25 Skin: cellulitis, is not appreciated, no rash present. 17:25 Neuro: Orientation: to person, place \T\ time. Mentation: is normal, Motor: moves all fours, strength is normal, Sensation: is normal, Gait: is steady, at a normal pace, without difficulty, Vital Signs: 17:13 BP 117 / 75; Pulse 84; Resp 16; Temp 98; Pulse Ox 100% ; bp 19:09 BP 114 / 69; Pulse 69; Resp 18; Temp 97.9; Pulse Ox 100% on R/A; Pain 3/10; kd4 19:09 Pain Scale: Adult kd4 Keren Coma Score: 19:09 Eye Response: spontaneous(4). Verbal Response: oriented(5). Motor Response: obeys kd4 commands(6). Total: 15. MDM: 17:12 Medical Screening Exam initiated cp 18:00 Differential diagnosis: contusion, fracture, jaw dislocation, dental injury. cp 19:05 Data reviewed: vital signs, nurses notes, radiologic studies, CT scan. cp 19:05 I considered the following discharge prescriptions or medication management in the cp emergency department Medications were administered in the Emergency Department. See MAR. Test considered but Not performed: Other Details panorex. Counseling: I had a detailed discussion with the patient and/or guardian regarding the historical points, exam findings, and any diagnostic results supporting the discharge/admit diagnosis, radiology results, to return to the emergency department if symptoms worsen or persist or if there are any questions or concerns that arise at home. Response to treatment: the patient's symptoms have mildly improved after treatment, and as a result, I will discharge patient. 04/22 17:16 Order name: CT Facial Bones W/O Con; Complete Time: 18:51 cp 04/22 19:03 Interpretation: Report reviewed. cp Administered Medications: 18:13 Drug: Ibuprofen PO 800 mg PO once; may give if not Route: PO; jb4 19:11 Follow up: Response: No adverse reaction kd4 Disposition: 18:12 I was immediately available on-site in the Emergency Department for consultation in the ms3 care of the patient. 04/23 17:29 Chart complete. cp Disposition Summary: 04/22/25 19:05 Discharge Ordered Notes: Location: Home cp Problem: new cp Symptoms: have improved cp Condition: Stable cp Diagnosis - Contusion of other part of head, initial encounter - right jaw cp Followup: cp - With: Daksha Ya MD - When: 5 - 6 days - Reason: pain, swelling continues Discharge Instructions: - Discharge Summary Sheet cp - Jaw Contusion cp - Jaw Range of Motion Exercises cp Forms: - Medication Reconciliation Form cp - Antibiotic Education cp - Prescription Opioid Use cp - Patient Portal Instructions cp - Leadership Thank You Letter cp Prescriptions: - Ibuprofen 800 mg Oral Tablet - take 1 tablet ORAL route every 8 hours As needed take with food; 30 tablet; cp Refills: 0, Product Selection Permitted Signatures: Dispatcher [employer] EDMS Ac Aly PA-C PA-C cp Bryson, James RN RN jb4 Anthony Brady RN RN Grupo Rosenthal DO DO ms3 Juventino Mancuso RN kd4 Corrections: (The following items were deleted from the chart) 04/22 17:16 17:16 Facial Bones W/ MPR+[id number].BRZ ordered. EDPA EDMS 04/23 16:37 04/22 17:15 No LOC. cp cp 04/23 16:39 16:37 ENT: Positive for pain, swelling right lower jaw, cp cp 16:39 16:37 Neuro: Negative for altered mental status, headache, loss of consciousness, cp numbness, weakness, cp 16:39 16:37 Abdomen/GI: Negative for vomiting, diarrhea, constipation, cp cp 16:39 16:37 Cardiovascular: Negative for chest pain, edema, palpitations, cp cp 16:39 16:37 Respiratory: Negative for cough, shortness of breath, wheezing, cp cp 16:39 16:37 Constitutional: Negative for body aches, chills, fever, poor PO intake, cp cp 16:39 16:37 Eyes: Negative for injury, pain, redness, and discharge, cp cp
--- NOTE | 2025-04-22 19:06 | ER ---
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 Coronavirus bp screen: At this time, the client does not indicate any symptoms associated with coronavirus-19. Ebola Screen: No symptoms or risks identified at this time. Initial Sepsis Screen: Does the patient meet any 2 criteria? No. Patient's initial sepsis screen is negative. Does the patient have a suspected source of infection? No. Patient's initial sepsis screen is negative. Risk Assessment: Do you want to hurt yourself or someone else? Patient reports no desire to harm self or others. Onset of symptoms was April 22, 2025 at 16:00. 17:13 Method Of Arrival: Ambulatory bp 17:13 Acuity: CEDRIC 4 bp Triage Assessment: 17:14 General: Appears in no apparent distress. Behavior is calm, cooperative, appropriate bp for age. Pain: Complains of pain in mouth. EENT: No deficits noted. Neuro: No deficits noted. Cardiovascular: No deficits noted. Respiratory: No deficits noted. GI: No signs and/or symptoms were reported involving the gastrointestinal system. : No signs and/or symptoms were reported regarding the genitourinary system. Derm: No deficits noted. Musculoskeletal: No deficits noted. 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 - Infectious Disease History:: Denies. - Social history:: Smoking status: Patient denies any tobacco usage or history of. Screenin:17 [facility] ED Fall Risk Assessment (Adult) History of falling in the last 3 months, jb4 including since admission No falls in past 3 months (0 pts) Confusion or Disorientation No (0 pts) Intoxicated or Sedated No (0 pts) Impaired Gait No (0 pts) Mobility Assist Device Used No (0 pt) Altered Elimination No (0 pt) Score/Fall Risk Level 0 - 2 = Low Risk Oriented to surroundings, Maintained a safe environment. Abuse screen: Denies threats or abuse. Nutritional screening: No deficits noted. Tuberculosis screening: No symptoms or risk factors identified. Assessment: 18:14 General: Appears in no apparent distress. comfortable, Behavior is calm, cooperative, jb4 appropriate for age. Pain: Complains of pain in right jaw and left jaw Pain does not radiate. Pain currently is 5 out of 10 on a pain scale. Neuro: Level of Consciousness is awake, alert, obeys commands. Cardiovascular: Patient's skin is warm and dry. Respiratory: Airway is patent Respiratory effort is even, unlabored, Respiratory pattern is regular, symmetrical. Derm: Skin is intact, Skin is pink, warm \T\ dry. Musculoskeletal: Circulation, motion, and sensation intact. Range of motion: intact in all extremities. 19:10 General: received patient in bed s/o x 4, d/c by , vss and d/c instruction given to kd4 patient.. : No deficits noted. Vital Signs: 17:13 BP 117 / 75; Pulse 84; Resp 16; Temp 98; Pulse Ox 100% ; bp 19:09 BP 114 / 69; Pulse 69; Resp 18; Temp 97.9; Pulse Ox 100% on R/A; Pain 3/10; kd4 19:09 Pain Scale: Adult kd4 Keren Coma Score: 19:09 Eye Response: spontaneous(4). Verbal Response: oriented(5). Motor Response: obeys kd4 commands(6). Total: 15. ED Course: 17:08 Patient arrived in ED. im 17:09 Ac Aly PA-C is PHCP. cp 17:09 Grupo Morocho DO is Attending Physician. cp 17:14 Triage completed. bp 17:14 Arm band placed on. bp 17:50 CT Facial Bones W/O Con In Process Unspecified. EDMS 18:08 Jhonatan Thomas, KEVIN is Primary Nurse. jb4 18:17 Patient has correct armband on for positive identification. Bed in low position. Call jb4 light in reach. Side rails up X 1. Provided Education on: plan of care. 18:17 No provider procedures requiring assistance completed. Patient did not have IV access jb4 during this emergency room visit. 19:03 Daksha Ya MD is Referral Physician. cp Administered Medications: 18:13 Drug: Ibuprofen PO 800 mg PO once; may give if not Route: PO; jb4 19:11 Follow up: Response: No adverse reaction kd4 Medication: 18:17 VIS not applicable for this client. jb4 Outcome: 19:05 Discharge ordered by . cp 19:12 Discharged to home ambulatory, kd4 19:12 Condition: stable 19:17 Discharge instructions given to patient, Instructed on discharge instructions, follow kd4 up and referral plans. medication usage, Demonstrated understanding of instructions, follow-up care, medications, Prescriptions given X 1, 19:18 Patient left the ED. kd4 Signatures: Dispatcher [employer] EDMS Ac Aly PA-C PAJhonatan Kerns cp, RN RN jb4 Anthony Brady RN RN Jeanine June Karim RN RN kd4
[2025-04-22 19:31] VITALS: O2SAT 100
[2025-04-22 19:32] VITALS: BP 114/69; TEMP 97.9
== END 2025-04-22 19:18 | disposition home or self-care (01) ==
LOC: ER 17:02
DX: S00.83XA Contusion of other part of head, initial encounter (principal)
CPT/HCPCS: 70486; 76377; 99283